=== PATIENT | female | born 1970 | race Caucasian/White ===

== ENCOUNTER → 2019-03-11 | Outpatient (CLI) | payer BC ==
[~2019-03-11] MED LIST: BUPR300T; CRYSELLE; DIPH25TA82; IBP800T PO
--- NOTE | 2019-03-11 15:28 | Diagnostic Imaging Report ---
PROCEDURE: US NONOB transvaginal. INDICATION: Right lower quadrant abdominal pain. TECHNIQUE: Multiple real time villalba scale sonographic images were obtained of the pelvis, transabdominally and transvaginally. CORRELATION STUDY: None. FINDINGS: There is nonvisualization of the uterus compatible with hysterectomy. Additionally, the left ovary is not visualized perhaps removed as well. What appears to be the right ovary is 1.0 x 1.0 x 0.8 cm, atrophic. There is a small hypoechoic area which could be reflective of a very small cyst or follicle at approximately 9 mm in size. No definitive abnormal pelvic mass lesion otherwise demonstrated. No significant pelvic fluid. IMPRESSION: 1. What may be the right ovary appears to be somewhat small and atrophic containing a probable small cyst or follicle. Definitive abnormal mass lesion not otherwise demonstrated. Nonvisualization of the uterus and left ovary, likely surgically removed. Dictated by: Dictated on workstation # [id number]
== END ==
LOC: RAD 12:32
PROVIDERS: ATTEND Nurse Practitioner Family
DX: R10.31 Right lower quadrant pain (principal); Z87.448 Personal history of other diseases of urinary system
CPT/HCPCS: 76830

== ENCOUNTER → 2019-03-28 | Outpatient (CLI) | payer BC ==
[~2019-03-28] MED LIST changes: +BARIUM SUSPENSION 105% (LIQUID POLIBAR PLUS) 240 ML/DOSE PO ONE; +BARIUM SUSPENSION 60% (LIQUID EZ PAQUE) 240 ML DOSE PO ONE
--- NOTE | 2019-03-28 12:30 | Diagnostic Imaging Report ---
INDICATION: Dysphagia with solid foods. TECHNIQUE: The patient ingested effervescent crystals as well as thin and thick barium and imaging over the esophagus was performed. 1 minute and 7 seconds of fluoroscopy was utilized. FINDINGS: The preliminary radiograph is unremarkable. The swallowing mechanism is unremarkable. The esophagus has a smooth contour. No mass or stricture is identified. No gastroesophageal reflux or hiatal hernia is demonstrated. IMPRESSION: Unremarkable esophagram. If symptoms persist, a modified barium swallow utilizing Speech Pathology may be useful for further evaluation. Dictated by: Dictated on workstation # [id number]
== END ==
LOC: RAD 11:20
PROVIDERS: ATTEND Nurse Practitioner Family
DX: Z12.31 Encounter for screening mammogram for malignant neoplasm of breast (principal); R05 Cough; R13.10 Dysphagia, unspecified
CPT/HCPCS: 74220

== ENCOUNTER → 2019-04-11 | Outpatient (CLI) | payer BC ==
[~2019-04-11] MED LIST changes: -BARIUM SUSPENSION 105% (LIQUID POLIBAR PLUS) 240 ML/DOSE PO ONE; -BARIUM SUSPENSION 60% (LIQUID EZ PAQUE) 240 ML DOSE PO ONE
--- NOTE | 2019-04-11 14:11 | Diagnostic Imaging Report ---
INDICATION: Left breast density. Patient presents for additional views. COMPARISON Screening study from 03/28/2019. TECHNIQUE: Unilateral left 2D and 3D diagnostic mammography was performed with CAD. Spot compression CC, ML, and conventional 90 degree lateral views were performed. FINDINGS: Additional views show a persistent nodular density in the central left breast which appears to be superiorly located on the ML views. This is approximately 7 cm from the nipple. This has the appearance of an intraparenchymal lymph node on the spot compression CC view. No suspicious calcifications are seen. IMPRESSION: Persistent left breast density. Further evaluation with ultrasound is recommended and will be performed today. ACR BI-RADS Category 0: Incomplete. (Needs additional imaging evaluation). Result letter will be mailed to the patient. Note: At least 10% of breast cancer is not imaged by mammography. Dictated by: Dictated on workstation # [id number]
--- NOTE | 2019-04-11 19:08 | Diagnostic Imaging Report ---
INDICATION: Left breast density. Correlation is made with diagnostic mammogram earlier the same day. FINDINGS: Sonographic interrogation of the upper left breast was performed. There is a benign-appearing hypoechoic nodule at the 12:30 location in the left breast approximately 3 cm from the nipple measuring 6 mm x 5 mm x 4 mm. This correlates in size and similar location to the mammographic density. This has benign features. No internal vascularity is seen. No posterior acoustic shadowing is present. IMPRESSION: Benign-appearing hypoechoic nodule at 12:30 location in the left breast, likely accounting for the mammographic density. Even so, follow-up left mammogram and left breast ultrasound in six months is recommended to ensure continued stability. ACR BI-RADS Category 3: Probably benign findings. Result letter will be mailed to the patient. Note: At least 10% of breast cancer is not imaged by mammography. Dictated by: Dictated on workstation # [id number]
== END ==
LOC: RAD 13:33
PROVIDERS: ATTEND Nurse Practitioner Family
DX: R92.2 Inconclusive mammogram (principal)
CPT/HCPCS: 76642

== ENCOUNTER 2019-08-09 14:00 | Outpatient (CLI) | payer BC ==
[~2019-08-09] VITALS: Ht 162.6 cm; Wt 101.4 kg
[2019-08-09] MEDS ORDERED: LEVO100T7 PO (14:11)
== END 2019-08-09 14:15 | disposition home or self-care (01) ==
LOC: PREOP 14:00
PROVIDERS: ATTEND Surgery
DX: Z01.818 Encounter for other preprocedural examination (principal)

== ENCOUNTER 2019-08-15 10:11 | Day surgery (SDC) | payer BC ==
[~2019-08-15] VITALS: Ht 163 cm; Wt 101.4 kg
[~2019-08-15 10:11] MED LIST changes: +LEVO100T7 PO
[2019-08-15] MEDS ORDERED: LACTATED RINGERS 1,000 ML IV STA (10:24)
[2019-08-15] MEDS ORDERED: LACTATED RINGERS 1,000 ML IV ONE (10:29)
[2019-08-15] MEDS ORDERED: HURRICAINE EXT TUBE (BENZOCAINE) XX PRN (10:30)
[2019-08-15 10:46] VITALS: BP 129/91
--- NOTE | 2019-08-15 11:30 | Progress Note-Pre Operative ---
Pre-Operative Progress Note H&P Reviewed The H&P was reviewed, patient examined and no changes noted. Time Seen by Provider: 11:05 Date H&P Reviewed: Aug 15, 2019 Time H&P Reviewed: 11:29 Pre-Operative Diagnosis: Dyspagia, Screening Colonoscopy FAN GRAVES DO Aug 15, 2019 11:30
[2019-08-15] MEDS ORDERED: MIDAZOLAM 2 MG/2 ML (VERSED) VIAL ONE (11:32)
[2019-08-15] MEDS ORDERED: PROPOFOL INJECTION 50 ML IV ONE (11:32)
[2019-08-15 12:15] VITALS: BP 142/78
[2019-08-15 12:45] VITALS: BP 119/64
--- NOTE | 2019-08-15 13:19 | Progress Note-Post Operative ---
Post-Operative Progess Note Surgeon (s)/Candle Pourer (s) Surgeon FAN GRAVES DO Candle Pourer: none Pre-Operative Diagnosis Dyspagia, Screening Colonoscopy Post-Operative Diagnosis Gastritis Esophagitis Hiatal Hernia Diverticula Internal hemorrhoids Procedure & Operative Findings Date of Procedure 08/15/19 Procedure Performed/Findings EGD with bx Colon Anesthesia Type IV sedation by PIPE CAULKER Estimated Blood Loss Estimated blood loss (mL): scant Specimens/Packing Specimens Removed antral bx body of stomach bx GE jxn bx FAN GRAVES DO Aug 15, 2019 13:19
--- NOTE | 2019-08-15 13:20 | Endoscopy Discharge Instruct ---
Endo Procedure/Findings Findings 1.: Gastritis 2.: Hiatal Hernia 3.: Diverticulosis 4.: Internal Hemorrhoids Discharge Instructions - Activity: You might feel a little sleepy until tomorrow. This is due to the medicine you received to relax you. Until tomorrow, you should: NOT drive a car, operate machinery or power tools. NOT drink any alcoholic beverages. NOT make any important decisions or sign importortant papers. Do not return to work until tomorrow, unless otherwise instructed. Resume previous activities tomorrow. Diet: Start by taking liquids. If you tolerate liquids, advance to solid food. 1.: Colonscopy in 10 years, EGD in 1 year Notify Physician - If you experience excessive bleeding, unusual abdominal pain, fever, or chest pain, contact your doctor immediately. FAN GRAVES DO Aug 15, 2019 13:20
--- NOTE | 2019-08-15 13:29 | Anesthesia-General Post-Op ---
MAC Patient Condition Mental Status/LOC: Same as Preop Cardiovascular: Satisfactory Nausea/Vomiting: Absent Respiratory: Satisfactory Pain: Controlled Complications: Absent Post Op Complications Complications None Follow Up Care/Instructions Patient Instructions None needed. Anesthesiology Discharge Order Discharge Order Patient is doing well, no complaints, stable vital signs, no apparent adverse anesthesia problems. AMENA PARKER DO Aug 15, 2019 13:28
[2019-08-15 13:35] VITALS: BP 119/64
--- NOTE | 2019-08-18 05:20 | OPERATIVE REPORT ---
DATE OF SERVICE: 08/15/2019 PREOPERATIVE DIAGNOSES: Dysphagia and screening colonoscopy. POSTOPERATIVE DIAGNOSES: 1. Gastritis. 2. Esophagitis. 3. Hiatal hernia. 4. Diverticula. 5. Internal hemorrhoids. PROCEDURES: 1. EGD with biopsy. 2. Colonoscopy. SURGEON: Robert Guzman DO. POST MANAGER: Sydney Serna MS3. SPECIMEN: Biopsy from the antrum, biopsy from body of stomach, biopsy from the GE junction. BLOOD LOSS: Scant. FLUIDS: Per anesthesia. POSTOPERATIVE CONDITION: Stable. INDICATION FOR PROCEDURE: The patient is a 49-year-old female who has been having some trouble swallowing, needed an EGD for workup. She never had a colonoscopy and needed screening colonoscopy. FINDINGS: The patient had some gastritis, esophagitis and hiatal hernia. In the colon, she had some diverticula and internal hemorrhoids. No other obvious pathology in the colon. PROCEDURE NOTE: After informed consent was obtained, the patient was brought to the endoscopy suite, placed in the bed in left lateral decubitus position. She was administered IV sedation by the VICE PROVOST who then monitored her vitals the entire time, heart rate, blood pressure, pulse ox. Started with the EGD, scope was inserted down the mouth through the esophagus into the stomach, pushed down into the stomach and noted some gastritis, took a picture of this, actually looked like there was a little bit of inflammation in the esophagus as well and took a picture of the esophagus on the way down in the antrum, pushed through, saw the pylorus and pushed through the pylorus into the duodenum. Duodenum looked good, took a picture. Pulled the scope back into the antrum and did a biopsy of the antrum, then retroflexed the scope, saw a small hiatal hernia and did a biopsy of body of stomach and then pulled the scope up into the esophagus and tried to do a biopsy of the GE junction. At this point, then suctioned the air out of the stomach and pulled the scope up the esophagus and out the mouth. Switched camera, switched gloves, went down below, started the colonoscopy, pushed the scope in all the way about 150 cm, able to get to the cecum. On the way in, noted some diverticula, took pictures of this in the cecum, took a picture of appendiceal orifice, noted the ileocecal valve and then slowly withdrew the scope insufflating to look circumferentially at the holland looking the cecum, up the ascending colon to the hepatic flexure, then down the transverse colon, the splenic flexure, then down into the descending colon and finally into the sigmoid and then into the rectum, retroflexed in the rectal vault, saw some minimal internal hemorrhoids, took a picture of this and then removed the scope. The patient tolerated the procedure, recovered in endoscopy suite. Job ID: [id number] DocumentID: [id number] Dictated Date: 08/17/2019 21:28:12 Transformer Inspector Date: 08/18/2019 05:20:11 Dictated By: ROBERT GUZMAN DO
== END 2019-08-15 13:35 | disposition home or self-care (01) ==
LOC: ENDO 10:11
PROVIDERS: ATTEND Surgery

== ENCOUNTER → 2019-09-26 | Outpatient (CLI) | payer BC ==
--- NOTE | 2019-09-26 14:18 | Diagnostic Imaging Report ---
INDICATION: Six-month followup left breast nodule. COMPARISON: Correlation is made with the prior left breast ultrasound from 04/11/2019. FINDINGS: The previously noted hypoechoic nodule at the 12:30 location of the left breast 3 cm from the nipple is again noted. This is unchanged in size measuring 5 mm x 4 mm x 6 mm. No new abnormality is seen. IMPRESSION: Stable benign-appearing hypoechoic nodule at the 12:30 location in the left breast 3 cm from the nipple. An additional 6 month followup left breast ultrasound is recommended to confirm stability. ACR BI-RADS Category 3: Probably benign findings. Dictated by: Dictated on workstation # [id number]
--- NOTE | 2019-09-26 14:23 | Diagnostic Imaging Report ---
INDICATION: Six-month followup left breast nodule. COMPARISON: 01/12/2019 and 09/28/2015. TECHNIQUE: Unilateral left 2D and 3D diagnostic mammography was performed with CAD. FINDINGS: Scattered fibroglandular densities are identified. The nodular density in the upper central left breast appears stable. No new mass is detected. No microcalcifications are seen. The left axilla is unremarkable. IMPRESSION: Stable left breast nodule. Even so, a left breast ultrasound is recommended to confirm stability. This will be performed today. ACR BI-RADS Category 0: Incomplete. (Needs additional imaging evaluation). Result letter will be mailed to the patient. Note: At least 10% of breast cancer is not imaged by mammography. Dictated by: Dictated on workstation # [id number]
== END ==
LOC: RAD 13:04
PROVIDERS: ATTEND Nurse Practitioner Family
DX: N63.21 Unspecified lump in the left breast, upper outer quadrant (principal)
CPT/HCPCS: 76642

== ENCOUNTER → 2020-03-22 | Outpatient (CLI) | payer BC | LOC: WOUNDCARE 13:19 | PROVIDERS: ATTEND Surgery | DX: L98.491 Non-pressure chronic ulcer of skin of other sites limited to breakdown of skin (principal); T23.231A Burn of second degree of multiple right fingers (nail), not including thumb, initial encounter | CPT/HCPCS: 16020 ==

== ENCOUNTER → 2020-03-29 | Outpatient (CLI) | payer BC | LOC: WOUNDCARE 09:27 | PROVIDERS: ATTEND Surgery | DX: T23.231A Burn of second degree of multiple right fingers (nail), not including thumb, initial encounter (principal); L98.491 Non-pressure chronic ulcer of skin of other sites limited to breakdown of skin | CPT/HCPCS: 99213 ==

== ENCOUNTER → 2020-04-05 | Outpatient (CLI) | payer BC ==
[~2020-04-05] MED LIST changes: +CEFD300C3 PO
== END ==
LOC: WOUNDCARE 08:18
PROVIDERS: ATTEND Surgery
DX: L98.491 Non-pressure chronic ulcer of skin of other sites limited to breakdown of skin (principal); T23.221A Burn of second degree of single right finger (nail) except thumb, initial encounter; I96 Gangrene, not elsewhere classified
CPT/HCPCS: 99212

== ENCOUNTER 2020-04-07 04:47 | Inpatient (IN) | payer BC ==
[~2020-04-07] VITALS: Ht 160 cm; Wt 108.8 kg
[2020-04-07] VITALS (14 sets, daily range): BP systolic 86–112; BP diastolic 46–62
[~2020-04-07 04:47] MED LIST changes: -CEFD300C3 PO
--- OUTSIDE RECORDS SUMMARY | 2020-04-07 04:54 | XMS REPORT | Continuity of Care Document ---
Author Organization Unknown Address Unknown Phone Unavailable Allergies Active Description Code Type Severity Reaction Onset Reported/Identified Relationship to Patient Clinical Status Yes erythromycin base [id number] Drug Allergy Moderate HIVES 09/24/2009 Yes latex [id number] Drug Allergy Moderate HIVES,ITCH 09/24/2009 Medications There is no data. Problems Date Dx Coded Attending Type Code Diagnosis Diagnosed By 03/30/2015 Ot V70.0 03/30/2015 Ot 793.89 03/30/2015 Ot V71.2 03/30/2015 Ot 793.89 03/30/2015 Ot 793.82 03/30/2015 Ot 241.0 03/30/2015 YRN ELISE, LUIS Lutz Ot 241. 0 04/04/2015 JASPER ELISE, RADHA A Ot 599.0 04/20/2015 JASPER ELISE, RADHA A Ot 599.0 09/28/2015 Ot V70.0 09/28/2015 Ot 793.89 09/28/2015 Ot V71.2 09/28/2015 Ot 793.89 09/28/2015 Ot 793.82 09/28/2015 Ot 241.0 09/28/2015 YRN ELISE, LUIS R Ot 241. 0 09/28/2015 JASPER ELISE, RADAH A Ot 599.0 10/17/2015 WINSTON ELISE, TANYA Victor Ot Z12.31 03/09/2019 JASPER ELISE, RADHA Matute Ot 599.0 URIN TRACT INFECTION NOS 03/09/2019 WINSTON ELISE, TANYA Victor Ot Z12.31 ENCNTR SCREEN MAMMOGRAM FOR MALIGNANT NE 03/14/2019 KEVIN SUTHERLAND CLINICAL ACADEMIC ALLERGIST Ot R10.31 RIGHT LOWER QUADRANT PAIN 03/14/2019 KEVIN SUTHERLAND Ot Z87.448 PERSONAL HISTORY OF OTHER DISEASES OF UR 03/14/2019 KEVIN SUTHERLAND CLINICAL ACADEMIC ALLERGIST Ot R10.31 RIGHT LOWER QUADRANT PAIN 03/14/2019 ENA, CRYSTAL M CLINICAL ACADEMIC ALLERGIST Ot Z87.448 PERSONAL HISTORY OF OTHER DISEASES OF UR 03/17/2019 KEVIN SUTHERLAND CLINICAL ACADEMIC ALLERGIST Ot R10.31 RIGHT LOWER QUADRANT PAIN 03/17/2019 KEVIN SUTHERLAND CLINICAL ACADEMIC ALLERGIST Ot Z87.448 PERSONAL HISTORY OF OTHER DISEASES OF UR 03/24/2019 KEVIN SUTHERLAND CLINICAL ACADEMIC ALLERGIST Ot R10.31 RIGHT LOWER QUADRANT PAIN 03/24/2019 KEVIN SUTHERLAND CLINICAL ACADEMIC ALLERGIST Ot Z87.448 PERSONAL HISTORY OF OTHER DISEASES OF UR 03/28/2019 KEVIN SUTHERLAND CLINICAL ACADEMIC ALLERGIST Ot R10.31 RIGHT LOWER QUADRANT PAIN 03/28/2019 KEVIN SUTHERLAND CLINICAL ACADEMIC ALLERGIST Ot Z87.448 PERSONAL HISTORY OF OTHER DISEASES OF UR 03/28/2019 KEVIN SUTHERLAND CLINICAL ACADEMIC ALLERGIST Ot R05 COUGH 03/28/2019 KEVIN SUTHERLAND CLINICAL ACADEMIC ALLERGIST Ot R13.10 DYSPHAGIA, UNSPECIFIED 03/28/2019 KEVIN SUTHERLAND CLINICAL ACADEMIC ALLERGIST Ot Z12.31 ENCNTR SCREEN MAMMOGRAM FOR MALIGNANT NE 04/12/2019 KEVIN SUTHERLAND CLINICAL ACADEMIC ALLERGIST Ot R92.2 INCONCLUSIVE MAMMOGRAM 04/14/2019 KEVIN SUTHERLAND CLINICAL ACADEMIC ALLERGIST Ot R05 COUGH 04/14/2019 KEVIN SUTHERLAND CLINICAL ACADEMIC ALLERGIST Ot R13.10 DYSPHAGIA, UNSPECIFIED 04/14/2019 KEVIN SUTHERLAND CLINICAL ACADEMIC ALLERGIST Ot Z12.31 ENCNTR SCREEN MAMMOGRAM FOR MALIGNANT NE 04/26/2019 KEVIN SUTHERLAND CLINICAL ACADEMIC ALLERGIST Ot R92.2 INCONCLUSIVE MAMMOGRAM 08/09/2019 FAN GRAVES DO Ot Z01.8 18 ENCOUNTER FOR OTHER PREPROCEDURAL EXAMIN 08/15/2019 FAN GRAVES DO Ot E03.9 HYPOTHYROIDISM, UNSPECIFIED 08/15/2019 FAN GRAVES DO B Ot E66.9 OBESITY, UNSPECIFIED 08/15/2019 FAN GRAVES DO B Ot K20.8 OTHER ESOPHAGITIS 08/15/2019 FAN GRAVES DO B Ot K29.5 0 UNSPECIFIED CHRONIC GASTRITIS WITHOUT BL 08/15/2019 FAN GRAVES DO Ot K44.9 DIAPHRAGMATIC HERNIA WITHOUT OBSTRUCTION 08/15/2019 FAN GRAVES DO B Ot K57.3 0 DVRTCLOS OF LG INT W/O PERFORATION OR AB 08/15/2019 FAN GRAVES DO Ot K64.8 OTHER HEMORRHOIDS 08/15/2019 FAN GRAVES DO Ot Z12.1 1 ENCOUNTER FOR SCREENING FOR MALIGNANT NE 08/15/2019 ELY CURTIS FAN B Ot Z68.3 8 BODY MASS INDEX (BMI) 38.0-38.9, ADULT 08/15/2019 ELY CURTIS FAN B Ot Z80.0 FAMILY HISTORY OF MALIGNANT NEOPLASM OF 08/15/2019 ELY CURTIS FAN B Ot Z88.1 ALLERGY STATUS TO OTHER ANTIBIOTIC AGENT 08/15/2019 ELY CURTIS FAN B Ot Z90.7 10 ACQUIRED ABSENCE OF BOTH CERVIX AND UTER 08/29/2019 ELY CURTIS FAN B Ot E03.9 HYPOTHYROIDISM, UNSPECIFIED 08/29/2019 ELY CURTIS FNA B Ot E66.9 OBESITY, UNSPECIFIED 08/29/2019 ELY CURTIS FAN B Ot K20.8 OTHER ESOPHAGITIS 08/29/2019 ELY CURTIS FAN B Ot K29.5 0 UNSPECIFIED CHRONIC GASTRITIS WITHOUT BL 08/29/2019 ELY CURTIS FAN B Ot K44.9 DIAPHRAGMATIC HERNIA WITHOUT OBSTRUCTION 08/29/2019 ELY CURTIS FAN B Ot K57.3 0 DVRTCLOS OF LG INT W/O PERFORATION OR AB 08/29/2019 ELY CURTIS FAN B Ot K64.8 OTHER HEMORRHOIDS 08/29/2019 ELY CURTIS FAN B Ot Z12.1 1 ENCOUNTER FOR SCREENING FOR MALIGNANT NE 08/29/2019 ELY CURTIS FAN B Ot Z68.3 8 BODY MASS INDEX (BMI) 38.0-38.9, ADULT 08/29/2019 ELY CURTIS FAN B Ot Z80.0 FAMILY HISTORY OF MALIGNANT NEOPLASM OF 08/29/2019 ELY CURTIS FAN B Ot Z88.1 ALLERGY STATUS TO OTHER ANTIBIOTIC AGENT 08/29/2019 ELY CURTIS, FAN B Ot Z90.7 10 ACQUIRED ABSENCE OF BOTH CERVIX AND UTER 09/26/2019 KEVIN USTHERLAND CLINICAL ACADEMIC ALLERGIST Ot R10.31 RIGHT LOWER QUADRANT PAIN 09/26/2019 KEVIN SUTHERLAND CLINICAL ACADEMIC ALLERGIST Ot Z87.448 PERSONAL HISTORY OF OTHER DISEASES OF UR 09/26/2019 KEVIN SUTHERLAND CLINICAL ACADEMIC ALLERGIST Ot R05 COUGH 09/26/2019 KEVIN SUTHERLAND CLINICAL ACADEMIC ALLERGIST Ot R13.10 DYSPHAGIA, UNSPECIFIED 09/26/2019 KEVIN SUTHERLAND CLINICAL ACADEMIC ALLERGIST Ot Z12.31 ENCNTR SCREEN MAMMOGRAM FOR MALIGNANT NE 09/26/2019 KEVIN SUTHERLAND Ot R92.2 INCONCLUSIVE MAMMOGRAM 09/27/2019 KEVIN SUTHERLAND Ot N63.21 UNSPECIFIED LUMP IN THE LEFT BREAST, UPP 03/23/2020 LEVON JUAREZ MD Ot L98.491 NON-PRS CHRONIC ULCER SKIN/ SITES LIMITE 03/23/2020 LEVON JUAREZ MD Ot T23.231A BURN 2ND DEG MUL RIGHT FINGERS (NAIL), N 03/23/2020 LEVON JUAREZ MD Ot L98.491 NON-PRS CHRONIC ULCER SKIN/ SITES LIMITE 03/23/2020 LEVON JUAREZ MD Ot T23.231A BURN 2ND DEG MUL RIGHT FINGERS (NAIL), N 03/28/2020 LEVON JUAREZ MD, Ot L98.491 NON-PRS CHRONIC ULCER SKIN/ SITES LIMITE 03/28/2020 LEVON JUAREZ MD Ot T23.231A BURN 2ND DEG MUL RIGHT FINGERS (NAIL), N 04/03/2020 LEVON JUAREZ MD, Ot L98.491 NON-PRS CHRONIC ULCER SKIN/ SITES LIMITE 04/03/2020 LEVON JUAREZ MD Ot T23.231A BURN 2ND DEG MUL RIGHT FINGERS (NAIL), N Procedures There is no data. Results There is no data. Encounters ACCT No. Visit Date/Time Discharge Status Pt. Type Provider Facility Loc./Unit Complaint [id number] 03/29/2020 09:27:00 23:59:59 CLS Outpatient LEVON JUAREZ MD [facility] WOUNDCARE [id number] 03/22/2020 13:19:00 23:59:59 CLS Outpatient LEVON JUAREZ MD [facility] WOUNDCARE [id number] 09/26/2019 13:04:00 23:59:59 CLS Outpatient KEVIN SUTHERLAND [facility] RAD ABNORMAL MAMMOG FRANCK [id number] 08/15/2019 10:11:00 13:35:00 DIS Outpatient FAN GRAVES DO [facility] ENDO SCREENING/DYSPHAGIA [id number] 08/09/2019 14:00:00 14:15:00 DIS Outpatient FAN GRAVES DO [facility] PREOP COLONOSCOPY/EGD [id number] 08/08/2019 10:00:00 23:59:59 CLS Preadmit FAN GRAVES DO V [facility] RAD DYSPHAGIA W/SOLID FOOD [id number] 04/11/2019 13:33:00 23:59:59 CLS Outpatient KEVIN SUTHERLAND CLINICAL ACADEMIC ALLERGIST [facility] RAD ABN MAMMO OF LE FT BREAST [id number] 03/28/2019 11:20:00 23:59:59 CLS Outpatient KEVIN SUTHERLAND CLINICAL ACADEMIC ALLERGIST [facility] RAD COUGH,DYSPHAGIA [id number] 03/11/2019 12:32:00 23:59:59 CLS Outpatient KEVIN SUTHERLAND CLINICAL ACADEMIC ALLERGIST [facility] RAD RLQ ABD PAIN [id number] 03/02/2019 08:49:00 23:59:59 CLS Preadmit KEVIN SUTHERLAND CLINICAL ACADEMIC ALLERGIST [facility] RAD SCREENING [id number] 09/28/2015 10:47:00 23:59:59 CLS Outpatient TANYA MONTERO MD [facility] RAD ROUTINE SCREENI NG [id number] 03/30/2015 07:17:00 015 23:59:59 CLS Outpatient RADHA HUTCHINSON MD [facility] RAD RECURRENT UTI [id number] 02/18/2013 10:03:00 013 23:59:59 CLS Outpatient YRN ELISE, LUIS Lutz [facility] RAD [id number] 04/05/2020 08:18:[address] Outpatient LEVON JUAREZ MD [facility] WOUNDCARE [id number] 03/30/2015 07:18:00 Document Registration [id number] 03/30/2015 07:18:00 Document Registration [id number] 08/25/2012 13:07:00 Document Registration [id number] 11/21/2011 07:53:00 Document Registration [id number] 11/20/2011 07:44:00 Document Registration
--- OUTSIDE RECORDS SUMMARY | 2020-04-07 04:54 | XMS REPORT ---
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 Unavailable Unavailable NO, LOCAL PHYSICIAN PCP Unavailable FAN GRAVES DO Unavailable Unavailable LARRY ELISE, LEVON Victor Unavailable Unavailable Unavailable Unavailable Unavailable Unavailable Allergies Normalized Allergy Reported Date of Reaction(s) Care Provider Facility Allergy Type classification allergen Allergy Onset DA ( Unclassified erythromycin 09-24-2009 - Urticaria ARELI L ENA [facility] Via sources.) base Zhanna Translations: Hospital - [ Allergy to [place] substance] (11020) Substance Latex Latex 09-24-2009 - HIVES,ITCH, CRYSTAL JONNIE MAKENZIE [facility] Via Allergy (22 Translations: HIVES,ITCH Zhanna sources.) [ Latex] Hospital - Translations: [place] [ Allergy to (34680) substance] Medications Medication Ingredient Drug Dose Dates Status Sig Sig Care Class(es) (Normalized) (Original) Provid er no buPROPion Aminoketone 08-09-20 Complete no Bupropion no information 19 d information Hcl name (2 Discontinued sources.) NOT APPLICABLE August 09, 2019 no diphenhydrA Histamine-1 08-09-20 Complete no Diphenhy dram no information MINE Receptor 19 d information ine Hcl n fidel (2 Antagonist Discontinued sources.) NOT APPLICABLE August 09, 2019 no Ethinyl Estrogen 01-15-20 Complete no Cryselle no information Estradiol / 10 d information Disconti nued name (2 Norgestrel NOT sources.) APPLICABLE January 14, 2010 no Ibuprofen Nonsteroida 01-16-20 Complete no Ibuprofen no information l 10 - d information Discontinued name (2 Anti-inflam 08-09-20 800 ORAL sources.) matory Drug 19 Three Times A Day 60 January 14, 2010 9:18pm August 09, 2019 levothyroxi levothyroxi l-Thyroxine no no Levothyr oxin no ne sodium ne informat information e Sodium name 0.1 mg oral ion Active 100 tablet (2 ORAL Daily sources.) Problems Problem Normalized Date Last Normalized Normalized Provider Edison powers Classification Problem(s) Recorded Problem Problem Sta tus Duration Residual Acquired Episodic Active FAN DELMAN , [facility] Via codes; absence of DO Zhanna unclassified both cervix Hospital - (3 sources.) and uterus [place] (10705) Allergic Allergy status Episodic Active FAN DELMAN , [facility] Via reactions (3 to other DO Zhanna sources.) antibiotic Hospital - agents status [place] (77562) Other Body mass Chronic Active FAN DELMAN , [facility] Via nutritional; index (BMI) DO [facility] endocrine; and 38.0-38.9, Hospital - metabolic adult [place] disorders (3 (51758) sources.) Zayas (5 Burn of second 03-23-2020 - Episodic Active LEVON Sriram [facility] Via sources.) degree of , MD Chao multiple right Hospital - fingers [place] (nail), not (47608) including thumb, initial encounter Other lower Cough Episodic Active CRYSTAL ENA [facility] Vi a respiratory [place] disease (3 Hospital - sources.) [place] (13242) Abdominal Diaphragmatic Episodic Active FAN DELMAN , [facility] Via hernia (3 hernia without DO [place] sources.) obstruction or Hospital - gangrene [place] (35137) Diverticulosis Diverticulosis Chronic Active FAN DELMAN , [facility] Via and of large DO [place] diverticulitis intestine Hospital - (3 sources.) without [place] perforation or (60951) abscess without bleeding Other Dysphagia Episodic Active LOCAL NO [place] Vi a gastrointestin Zhanna al disorders Hospital (1 source.) (75073) Other Dysphagia, Episodic Active CRYSTAL ENA [facility] Vi a gastrointestin unspecified Zhanna al disorders Hospital - (3 sources.) [place] (90299) Residual Family history Episodic Active FAN DELMAN , [facility] Via codes; of malignant DO Zhanna unclassified neoplasm of Hospital - (3 sources.) digestive [place] organs (75633) Thyroid Hypothyroidism Chronic Active FAN DELMAN , [facility] Via disorders (3 , unspecified DO Zhanna sources.) Hospital - [place] (89801) Other Inconclusive Episodic Active CRYSTAL ENA [facility] Via screening for mammogram Zhanna suspected Translations: Hospital - conditions [ ENCOUNTER [place] (not mental FOR SCREENING (55406) disorders or FOR MALIGNANT infectious NE, ENCNTR disease) (9 SCREEN sources.) MAMMOGRAM FOR MALIGNANT NE] Chronic ulcer Non-pressure 03-23-2020 - Chronic Active JOHANNA JUAREZ [facility] Via of skin (5 chronic ulcer , [facility] sources.) of skin of Hospital - other sites [place] limited to (27354) breakdown of skin Other Obesity, Chronic Active FAN DELMAN , [facility] Via nutritional; unspecified DO [facility] endocrine; and Hospital - metabolic [place] disorders (3 (69977) sources.) Esophageal Other Episodic Active FAN DELMAN , [facility] Via disorders (3 esophagitis DO [facility] sources.) Hospital - [place] (13957) Hemorrhoids (3 Other Episodic Active FAN DELMAN , [facility] Via sources.) hemorrhoids DO [facility] (27218) Unclassified Patient no information Active LOCAL NO [facility] Via (1 source.) encounter [facility] (58173) Genitourinary Personal Episodic Active CRYSTAL ENA [facility] Via symptoms and history of [facility] ill-defined other diseases Hospital - conditions (6 of urinary [place] sources.) system (03140) Abdominal pain Right lower Episodic Active CRYSTAL ENA [facility] Via (6 sources.) quadrant pain [facility] (85335) Gastritis and Unspecified Chronic Active FAN DELMAN , [facility] Via duodenitis (3 chronic DO [facility] sources.) gastritis Hospital - without [place] bleeding (84038) Nonmalignant Unspecified Episodic Active CRYSTAL ENA [facility] Via breast lump in the [facility] conditions (1 left breast, Hospital - source.) upper outer [place] quadrant (72614) Procedures The data below is from unstructured sourcesNo procedure information available.No procedure information available.No procedure information available. Immunizations The data below is from unstructured sourcesNo Immunization Information AvailableNo Immunization Information AvailableNo Immunization Information Available Results The data below is from unstructured sourcesNo known relevant diagnostic tests and/or laboratory data.No known relevant diagnostic tests and/or laboratory data.No known relevant diagnostic tests and/or la boratory data. Vital Signs The data below is from unstructured sources Vital Reading Result Col lection Date/Time Interventions No Information Plan of Treatment Normalized Care Care Detail Care Activity Date Care Provider F acility Activity Patient Education no information no information LOCAL NO As cension Via [facility] (63006) Goals Patient Goal Desired Goal no information no information Social History Normalized Code Original Code Date Value Tobacco smoking status Tobacco smoking status 08-09-2019 - Never smoked tobacco NHIS NHIS (finding) no information no information 08-09-2019 Denies Use no information no information 08-09-2019 No no information no information 08-09-2019 Never a Smoker Sex Assigned At Sex Assigned At no information F emale Functional Status The data below is from unstructured sourcesNo Functional Status information availableNo Functional Status information availableNo Functional Status information available Mental Status The data below is from unstructured sourcesNo Mental Status Information AvailableNo Mental Status Information AvailableNo Mental Status Information Available Encounters Encounter Normalized Encounter Encounter Diagnosis Care Provi wild Organization Date Type 08-15-2019 Admission to day no information (no phone) [facility] Via [facility] (no phone) 08-15-2019 04-05-2020 Patient encounter no information LEVON JUAREZ MD (no [facility] Via Zhanna procedure phone) [facility] (no phone) 03-29-2020 Patient encounter no information LEVON JUAREZ MD (no [facility] Via Zhanna procedure phone) [facility] (no phone) 03-22-2020 Patient encounter no information LEVON JUAREZ MD (no [facility] Via Zhanna procedure phone) [facility] (no phone) 09-26-2019 Patient encounter no information no name no or ganization name procedure 08-15-2019 Patient encounter no information no name no or ganization name - procedure 08-15-2019 08-15-2019 Patient encounter no information no name no or ganization name - procedure 08-15-2019 08-09-2019 Patient encounter no information (no phone) [facility] (no phone) 08-09-2019 08-08-2019 Patient encounter no information no name no or ganization name procedure 04-11-2019 Patient encounter no information no name no or ganization name procedure 04-11-2019 Patient encounter no information no name no or ganization name procedure 03-28-2019 Patient encounter no information no name no or ganization name procedure 03-11-2019 Patient encounter no information no name no or ganization name procedure 03-11-2019 Patient encounter no information no name no or ganization name procedure no information Encounter for other no name no organiz ation name preprocedural examination Medical Equipment The data below is from unstructured sourcesNo Medical Equipment Information availableNo Medical Equipment Information availableNo Medical Equipment Information available Payers Normalized Payer Value [facility] no information ([id number]) Advance Directives Advance Directive Response Recorded Date/Time Advance Directives No Oc tob2018 2:06pm Health Care Power of Auto Glass Installer No August 09, 2019 2:06pm Organ Donor Yes August 09, 2019 2:06pm Resuscitation Status Full Code August 09, 2019 2:06pm Advance Directive Response Recorded Date/Time Advance Directives No Oc tober 2018 10:43am Health Care Power of Auto Glass Installer No August 15, 2019 10:43am Organ Donor Yes August 15, 2019 10:43am Resuscitation Status Full Code August 15, 2019 10:43am Assessments No Assessments Information Available - Activity: You might feel a little sleepy until tomorrow. This is due to the medi cine you received to relax you. Until tomorrow, you should: NOT drive a car, operate machinery or power tools. NOT drink any alcoholic beverages. NOT make any important decisions or sign importortant papers. Do not return to work until tomorrow, unless otherwise instructed. Resume previo us activities tomorrow. Diet: Start by taking liquids. If you tolerate liquids, advance to solid food. Discharge Instructions Additional Instructions Patient Instructions Physician Instructions 1.: Gastritis 2.: Hiatal Hernia 3.: Diverticulosis 4.: Internal Hemorrhoids - Activity: You might feel a little sleepy until tomorrow. This is due to the medicine you received to relax you. Until tomorrow, you should: NOT drive a car, operate machinery or power tools. NOT drink any alcoholic beverages. NOT make any important decisions or sign importortant papers. Do not return to work until tomorrow, unless otherwise instructed. Resume previous activities tomorrow. Diet: Start by taking liquids. If you tolerate liquids, advance to solid food. 1.: Colonscopy in 10 years, EGD in 1 year - If you experience excessive bleeding, unusual abdominal pain, fever, or chest pain, contact your doctor immediately. Additional Source Comments This clinical document has been generated using [employer] software that has been certified by the Office of the National Coordinator for Health Information Technology (ONC 15.99.04.3023.Diam.[id number]) and the National Committee for Manager Floor (NCQA, as an eMeasure certified technology). FOR RECORDS PERTAINING TO PATIENTS WHO ARE OR HAVE BEEN ENROLLED IN A CHEMICAL D EPENDENCY/SUBSTANCE ABUSE PROGRAM, SOME INFORMATION MAY BE OMITTED. This clinica l summary was aggregated from multiple sources. Caution should be exercised in using it in the provision of clinical care. This summary normalizes information from multiple sources, and as a consequence, information in this document may ma terially change the coding, format and clinical context of patient data. In gertrudis tion, data may be omitted in some cases. CLINICAL DECISIONS SHOULD BE BASED ON T HE PRIMARY CLINICAL RECORDS. [facility] [employer] [facility]. provides no warranty or guara ntee of the accuracy or completeness of information in this document.The followi information is based on time limited clinical information
[2020-04-07] MEDS ORDERED: NITROGLYCERIN 0.4 MG SL TABS BTL 25'S SL PRN (05:00)
[2020-04-07] MEDS ORDERED: ASPIRIN 81 MG CHEW (CHILDREN'S ASA) PO ONE (05:00)
[2020-04-07 05:08] LABS: BASOPHILS % (AUTO) 0 % (0-10); EOSINOPHILS # (AUTO) 0.1 10^3/uL (0.0-0.3); EOSINOPHILS % (AUTO) 1 % (0-10); HEMATOCRIT 42 % (35-52); HEMOGLOBIN 13.5 G/DL (11.5-16.0); LYMPHOCYTES # (AUTO) 0.9 X 10^3 (1.0-4.0); LYMPHOCYTES % (AUTO) 8 % (12-44); MEAN CORPUSCULAR HEMOGLOBIN 27 PG (25-34); MEAN CORPUSCULAR HGB CONC 32 G/DL (32-36); MEAN CORPUSCULAR VOLUME 82 FL (80-99); MEAN PLATELET VOLUME 9.6 FL (7.4-10.4); MONOCYTES # (AUTO) 0.5 X 10^3 (0.0-1.0); MONOCYTES % (AUTO) 4 % (0-12); NEUTROPHILS # (AUTO) 9.6 X 10^3 (1.8-7.8); NEUTROPHILS % (AUTO) 87 % (42-75); PLATELET COUNT 216 10^3/uL (130-400); WHITE BLOOD COUNT 11.1 10^3/uL (4.3-11.0)
--- NOTE | 2020-04-07 05:09 | ED Chest Pain ---
General Chief Complaint: Chest Pain Stated Complaint: CP & BACK PAIN Source: patient (ABBYGOLDEN Trang CURTIS) History of Present Illness Date Seen by Provider: Apr 07, 2020 Time Seen by Provider: 04:53 Initial Comments PT ARRIVES VIA POV FROM HOME C/O CHEST PAIN THAT WOKE HER FROM SLEEP AT 0330 PAIN RADIATES INTO BACK PAIN IN BACK IS SHARP, PAIN IN CHEST IS MUCH HEAVINESS RATES PAIN 7/10 NOTHING WORSENS OR IMPROVES PAIN + SHORTNESS OF BREATH NO SWEATS MILD NAUSEA, NO VOMITING NO SWELLING IN LEGS/ FEET OR PAIN IN CALVES NO PALPITATIONS NO DIZZINESS OR SYNCOPE HAS HAD NASAL CONGESTION AND DRAINAGE, NO SIGNIFICANT COUGH--ONLY DUE TO DRAINAGE STATES SHE HAS ALLERGIES AND TAKES MUCINEX FOR IT NO FEVER/SWEATS/ CHILLS NO SORE THROAT NO CHANGE IN SMELL OR TASTE NO KNOWN SICK CONTACTS OR EXPOSURE TO COVID-19 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 VALLEJO/ EMAIL MANAGER [facility] [place] (GOLDEN MORA DO) Allergies and Home Medications Allergies Coded Allergies: erythromycin base (Verified Allergy, Intermediate, HIVES, 09/24/09) latex (Unverified Allergy, Intermediate, HIVES,ITCH, 09/24/09) Home Medications Levothyroxine Sodium 100 Mcg Tablet, 100 MCG PO DAILY, (Reported) Patient Home Medication List Home Medication List Reviewed: Yes (JULI YOUSSEF MD) Review of Systems Review of Systems Constitutional: no symptoms reported; No chills, No diaphoresis, No dizziness, No fever EENTM: No Symptoms Reported Respiratory: See HPI, Shortness of Air Cardiovascular: No Symptoms Reported, Chest Pain; Denies Edema, Denies Lightheadedness, Denies Palpitations, Denies Syncope Gastrointestinal: No Symptoms Reported; Denies Abdominal Pain, Denies Nausea, Denies Vomiting Genitourinary: No Symptoms Reported Musculoskeletal: see HPI, back pain Skin: other (CURRENTLY GOING TO WOUND CLINIC FOR A CHEMICAL BURN TO RIGHT 4TH FINGER) Psychiatric/Neurological: No Symptoms Reported, Headache Endocrine: No Symptoms Reported Hematologic/Lymphatic: No Symptoms Reported (GOLDEN MORA DO) Past Bamrwxm-Bymmhm-Vytsri Hx Past Med/Social Hx: Reviewed and Corrections made (GOLDEN MORA DO) Patient Social History Alcohol Use: Denies Use Recreational Drug Use: No Smoking Status: Never a Smoker Recent Foreign Travel: No Contact w/Someone Who Travel: No Recent Hopitalizations: No (ABBYGOLDEN Trang CURTIS) Seasonal Allergies Seasonal Allergies: Yes (ABBYGOLDEN Trang CURTIS) Past Medical History Surgeries: Yes (BUNIONECTOMY BILATERALLY X 2; X 4; HYST/USO) Section, Hysterectomy, Oophorectomy, Orthopedic Respiratory: No Cardiac: No Neurological: No Reproductive Disorders: Yes (MENORRHAGIA) 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 oz. kg; 38.16 BMI Method: General Appearance: No Apparent Distress, WD/WN, Other (OCCSIONAL LOOSE UPPER AIRWAY COUGH) HEENT: Other (NASAL CONGESTION) Neck: Full Range of Motion, Normal Inspection, Non Tender, Supple; No Carotid Bruit, No JVD Respiratory: Chest Non Tender, Normal Breath Sounds, No Accessory Muscle Use, No Respiratory Distress Cardiovascular: No Edema, No JVD, No Murmur, Normal Peripheral Pulses, Tachycardia Gastrointestinal: Normal Bowel Sounds, No Organomegaly, No Pulsatile Mass, Non Tender, Soft Extremity: Normal Capillary Refill, Normal Inspection, Normal Range of Motion, Non Tender, No Calf Tenderness, No Pedal Edema Neurologic/Psychiatric: Alert, Oriented x3, No Motor/Sensory Deficits, Normal Mood/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, 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 Norm as Tested Skin: Normal Color, Warm/Dry (ABBYGOLDEN Trang CURTIS) Progress/Results/Core Measures Results/Orders Lab Results Laboratory Tests Test 04/07/20 05:00 04/07/20 06:00 Range/Units White Blood Count 11.1 H 4.3-11.0 10^3/uL Red Blood Count 5.10 4.35-5.85 10^6/uL Hemoglobin 13.5 11.5-16.0 G/DL Hematocrit 42 35-52 % Mean Corpuscular Volume 82 80-99 FL Mean Corpuscular Hemoglobin 27 25-34 PG Mean Corpuscular Hemoglobin Concent 32 32-36 G/DL Red Cell Distribution Width 14.0 10.0-14.5 % Platelet Count 216 130-400 10^3/uL Mean Platelet Volume 9.6 7.4-10.4 FL Neutrophils (%) (Auto) 87 H 42-75 % Lymphocytes (%) (Auto) 8 L 12-44 % Monocytes (%) (Auto) 4 0-12 % Eosinophils (%) (Auto) 1 0-10 % Basophils (%) (Auto) 0 0-10 % Neutrophils # (Auto) 9.6 H 1.8-7.8 X 10^3 Lymphocytes # (Auto) 0.9 L 1.0-4.0 X 10^3 Monocytes # (Auto) 0.5 0.0-1.0 X 10^3 Eosinophils # (Auto) 0.1 0.0-0.3 10^3/uL Basophils # (Auto) 0.0 0.0-0.1 10^3/uL Erythrocyte Sedimentation Rate 1 0-30 MM/HR Prothrombin Time 12.4 12.2-14.7 SEC INR Comment 0.9 0.8-1.4 Activated Partial Thromboplast Time 31 24-35 SEC D-Dimer < 0.27 0.00-0.49 UG/ML Sodium Level 137 135-145 MMOL/L Potassium Level 3.9 3.6-5.0 MMOL/L Chloride Level 104 98-107 MMOL/L Carbon Dioxide Level 24 21-32 MMOL/L Anion Gap 9 5-14 MMOL/L Blood Urea Nitrogen 12 7-18 MG/DL Creatinine 0.98 0.60-1.30 MG/DL Estimat Glomerular Filtration Rate 60 BUN/Creatinine Ratio 12 Glucose Level 120 H 70-105 MG/DL Calcium Level 9.0 8.5-10.1 MG/DL Corrected Calcium 8.8 8.5-10.1 MG/DL Magnesium Level 1.9 1.6-2.4 MG/DL Total Bilirubin 0.7 0.1-1.0 MG/DL Aspartate Amino Transf (AST/SGOT) 17 5-34 U/L Alanine Aminotransferase (ALT/SGPT) 13 0-55 U/L Alkaline Phosphatase 76 40-136 U/L Lactate Dehydrogenase 172 125-220 U/L Total Creatine Kinase 75 29-168 U/L Creatine Kinase MB 0.9 <6.6 NG/ML Myoglobin 35.3 10.0-92.0 NG/ML Troponin I < 0.028 <0.028 NG/ML C-Reactive Protein High Sensitivity 2.22 H 0.00-0.50 MG/DL B-Type Natriuretic Peptide 13.0 <100.0 PG/ML Total Protein 7.2 6.4-8.2 GM/DL Albumin 4.2 3.2-4.5 GM/DL Amylase Level 63 25-125 U/L Lipase 19 8-78 U/L Procalcitonin 0.01 <0.10 NG/ML (JULI YOUSSEF MD) My Orders Orders - JULI YOUSSEF MD Lactic Acid Analyzer (04/07/20 06:49) Blood Culture (04/07/20 06:49) Azithromycin Injection (Zithromax Inject (04/07/20 06:49) Ceftriaxone For Iv Use (Rocephin For I (04/07/20 06:49) Troponin I (04/07/20 06:49) (JULI YOUSSEF MD) Medications Given in ED Current Medications Medications Dose Ordered Sig/June Route Start Time Stop Time Status Last Admin Dose Admin Aspirin 324 mg ONCE ONCE PO 04/07/20 05:00 04/07/20 05:02 DC 04/07/20 05:04 324 MG Iohexol 100 ml ONCE ONCE IV 04/07/20 05:45 04/07/20 06:52 DC 04/07/20 06:33 79 ML Nitroglycerin 0.4 mg UD PRN SL 04/07/20 05:00 04/07/20 05:07 0.4 MG Ondansetron HCl 8 mg ONCE ONCE IVP 04/07/20 05:30 04/07/20 05:31 DC 04/07/20 05:31 8 MG Sodium Chloride 100 ml ONCE ONCE IV 04/07/20 05:45 04/07/20 06:52 DC 04/07/20 06:33 100 ML (JULI YOUSSEF MD) Vital Signs/I&O 04/07/20 04/07/20 04/07/20 04:52 04:52 05:25 Temp 37.1 Pulse 108 Resp 20 B/P (MAP) 141/77 (98) O2 Delivery Room Air Room Air Nasal Cannula O2 Flow Rate 2.00 (JULI YOUSSEF MD) Progress Progress Note : Progress Note GAVE 4 BABY ASPIRIN AND NTG X 1 WITH SLIGHT IMPROVEMENT IN CHEST PAIN, BUT DROP IN BP TO 101 SYSTOLIC--GIVEN FLUID BOLUS GIVEN MORPHINE--BACK PAIN IS GONE, STILL WITH HEAVINESS IN CHEST, BUT IS IMPROVING GIVEN ZOFRAN FOR NAUSEA--RESOLVED COVID -19 TESTING DONE 0600--CARE TURNED OVER TO DR. YOUSSEF, CT CHEST PENDING (GOLDEN MORA DO) Progress Note : Progress Note 0600: Assumed care of patient pending CT scan. COVID 19 testing to be done. Monitor patient. 0700: CT complete and does show left lower lobe pneumonia. Also note cholelithiasis. We will initiate blood cultures and lactic acid and then start Rocephin and Zithromax and admitted patient to the hospital for further evaluation including cardiology evaluation for the chest pain. While patient does have a gallstone this does not seem to be inflamed and I do not think cholecystitis is a concern at this point. Discussed findings and concerns with the patient who agrees with the plan. 0719: I spoke with Dr. Humphrey who accepts patient for admission, inpatient status to cardiac step down. we'll continue the consultants Dr. Guzman and Dr. Medina who will see the patient once cleared from COVID testing. All agree with plan. Patient agrees with plan. (JULI OYUSSEF MD) Initial ECG Impression Date: Apr 07, 2020 Initial ECG Impression Time: 04:54 Initial ECG Rate: 114 Initial ECG Rhythm: S.Tach (GOLDEN MORA DO) Diagnostic Imaging Comments CXR---NO ACUTE PROCESS, PENDING RADIOLOGIST REVIEW Reviewed: Reviewed by Me (GOLDEN MORA DO) Diagonstic Imaging: CT Plain Films/CT/US/NM/MRI: chest Comments [facility] [place], [place] NAME: TAMELA BLUNT [facility] REC#: [id number] PT STATUS: REG ER : 1970 PHYSICIAN: GOLDEN MORA DO ADMIT DATE: 04/07/20/ER Draft Date of Exam:04/07/20 CT ANGIO CHEST W PROCEDURE: CT angiography of the chest with contrast. TECHNIQUE: Multiple contiguous axial images were obtained through the chest after uneventful bolus administration of intravenous contrast. 3D reconstructed CTA MIP acquisitions were also performed. Auto Exposure Controls were utilized during the CT exam to meet ALARA standards for radiation dose reduction. INDICATION: Chest pain and shortness of air. No prior studies are available for comparison. Evaluation of the pulmonary arterial system is without evidence of thromboembolism. No filling defects are seen within central, lobar or segmental branches. Thoracic aorta is normal caliber. No dissection is identified. No pericardial or pleural fluid is identified. There is some mild infiltrate in the left lower lobe adjacent to the heart. Right lung is clear. Upper abdomen demonstrates a stone within the gallbladder. IMPRESSION: 1. No evidence of pulmonary embolism or thoracic aortic dissection. 2. Left basilar infiltrate. 3. Cholelithiasis. Dictated on workstation # [id number] Dict: 04/07/20 0638 Trans: 04/07/20 0643 [facility] [id number] Interpreted by: SURI DECKER MD Electronically signed by: Reviewed: Reviewed by Me (JULI YOUSSEF MD) Departure Communication (Admissions) Time/Spoke to Admitting Phy: 07:12 Time/Spoke to Consulting Phy: 07:15 (JULI YOUSSEF MD) Impression Primary Impression: Left lower lobe pneumonia Qualified Codes: J18.1 - Lobar pneumonia, unspecified organism Additional Impressions: Cholelithiasis Qualified Codes: K80.20 - Calculus of gallbladder without cholecystitis without obstruction Chest pain Qualified Codes: R07.9 - Chest pain, unspecified COVID-19 evaluation Disposition: ADMITTED INPATIENT Condition: Stable Admissions Decision to Admit Reason: Admit from ER (General) Decision to Admit/Date: Apr 07, 2020 Time/Decision to Admit Time: 07:00 (JULI YOUSSEF MD) Departure-Patient Inst. Referrals: NO,LOCAL PHYSICIAN (PCP) Primary Care Physician KEVIN SUTHERLAND (Family) Primary Care Physician GOLDEN MORA DO Apr 07, 2020 05:08 JULI YOUSSEF MD Apr 07, 2020 07:14
[2020-04-07] MEDS ORDERED: morphine INJ 10 MG/ML 1ML (SYR OR VIAL) IVP STA ×2 (05:13→05:27)
[2020-04-07 05:20] LABS: ALBUMIN 4.2 GM/DL (3.2-4.5)
[2020-04-07 05:21] LABS: POTASSIUM 3.9 MMOL/L (3.6-5.0)
[2020-04-07] MEDS ORDERED: NS IV 1000 ML 1,000 ML IV SCH (05:21)
[2020-04-07 05:23] LABS: TOTAL PROTEIN 7.2 GM/DL (6.4-8.2)
[2020-04-07 05:25] LABS: BILIRUBIN,TOTAL 0.7 MG/DL (0.1-1.0); INR 0.9 (0.8-1.4); PARTIAL THROMBOPLASTIN TIME 31 SEC (24-35); PROTHROMBIN TIME PATIENT 12.4 SEC (12.2-14.7)
[2020-04-07 05:26] LABS: CREATININE SERUM 0.98 MG/DL (0.60-1.30)
[2020-04-07 05:29] LABS: MAGNESIUM 1.9 MG/DL (1.6-2.4)
[2020-04-07] MEDS ORDERED: ONDANSETRON 4 MG/2 ML (SDV) Z0FRAN IVP ONE (05:30)
[2020-04-07 05:38] LABS: CREATINE KINASE MB 0.9 NG/ML (<6.6)
[2020-04-07] MEDS ORDERED: IOHEXOL 350 MG/ML 100 ML (OMNIPAQUE 350) VIAL IV ONE (05:45)
[2020-04-07] MEDS ORDERED: HOLD METFORMIN - RECEIVED CONTRAST 20 ML VIAL IV SCH (05:45)
[2020-04-07] MEDS ORDERED: NS 100 ML (IVPB) BAG IV ONE (05:45)
--- NOTE | 2020-04-07 06:00 | NUR ---
COVID-19 SWAB COLLECTED AND TAKEN TO LAB WITH [facility]
[2020-04-07 06:09] LABS: FIBRIN DEGRADATION PRODUCTS < 0.27 UG/ML (0.00-0.49)
--- NOTE | 2020-04-07 06:43 | Diagnostic Imaging Report ---
PROCEDURE: CT angiography of the chest with contrast. TECHNIQUE: Multiple contiguous axial images were obtained through the chest after uneventful bolus administration of intravenous contrast. 3D reconstructed CTA MIP acquisitions were also performed. Auto Exposure Controls were utilized during the CT exam to meet ALARA standards for radiation dose reduction. INDICATION: Chest pain and shortness of air. No prior studies are available for comparison. Evaluation of the pulmonary arterial system is without evidence of thromboembolism. No filling defects are seen within central, lobar or segmental branches. Thoracic aorta is normal caliber. No dissection is identified. No pericardial or pleural fluid is identified. There is some mild infiltrate in the left lower lobe adjacent to the heart. Right lung is clear. Upper abdomen demonstrates a stone within the gallbladder. IMPRESSION: 1. No evidence of pulmonary embolism or thoracic aortic dissection. 2. Left basilar infiltrate. 3. Cholelithiasis. Dictated by: Dictated on workstation # [id number]
[2020-04-07] MEDS ORDERED: cefTRIAXone FOR IV USE 1,000 MG in WATER (STERILE) FOR INJECTION 10 ML IV STA (06:49)
[2020-04-07] MEDS ORDERED: AZITHROMYCIN INJECTION 500 MG in NS (IVPB) 250 ML IV STA (06:49)
--- OUTSIDE RECORDS SUMMARY | 2020-04-07 07:32 | XMS REPORT ---
Author Author [employer] [facility] [employer] [facility] [employer] Address [address] [address] Care Team Providers Care Surgical Scheduler Name Role Phone ENA KEVIN George DIRECTOR EXTERNAL COMMUNICATIONS Unavailable Unavailable NO, LOCAL PHYSICIAN PCP Unavailable FAN GRAVES DO Unavailable Unavailable LARRY ELISE, LEVON Victor Unavailable Unavailable Unavailable Unavailable Unavailable Unavailable Unavailable Unavailable Allergies Normalized Allergy Reported Date of Reaction(s) Care Provider Facility Allergy Type classification allergen Allergy Onset DA ( Unclassified erythromycin 09-24-2009 - Urticaria ARELI L ENA [facility] Via sources.) base [place] Translations: Hospital - [ Allergy to [place] substance] (02142) Substance Latex Latex 09-24-2009 - HIVES,ITCH, CRYSTAL JONNIE MAKENZIE [facility] Via Allergy (22 Translations: HIVES,ITCH [place] sources.) [ Latex] Hospital - Translations: [place] [ Allergy to (11987) substance] Medications Medication Ingredient Drug Dose Dates [...] cervix Hospital - (3 sources.) and uterus [place] (77685) Allergic Allergy status Episodic Active FAN DELMAN , [facility] Via reactions (3 to other DO [place] sources.) antibiotic Hospital - agents status [place] (80009) Other Body mass Chronic Active FAN DELMAN , [facility] Via nutritional; index (BMI) DO [facility] endocrine; and 38.0-38.9, Hospital - metabolic adult [place] disorders (3 (26968) sources.) Zayas (5 Burn of second 03-23-2020 - Episodic Active LEVON Sriram ROCA [facility] Via sources.) degree of , MD Chao multiple right Hospital - fingers [place] (nail), not (53843) including thumb, initial encounter Other lower Cough Episodic Active CRYSTAL ENA [facility] Vi a respiratory [place] disease (3 Hospital - sources.) [place] (18622) Abdominal Diaphragmatic Episodic Active FAN DELMAN , [facility] Via hernia (3 hernia without DO [place] sources.) obstruction or Hospital - gangrene [place] (68565) Diverticulosis Diverticulosis Chronic Active FAN DELMAN , [facility] Via and of large DO [place] diverticulitis intestine Hospital - (3 sources.) without [place] perforation or (19183) abscess without bleeding Other Dysphagia Episodic Active LOCAL NO [place] Vi a gastrointestin [place] al disorders Hospital (1 source.) (63509) Other Dysphagia, Episodic Active CRYSTAL ENA [facility] Vi a gastrointestin unspecified [place] al disorders Hospital - (3 sources.) [place] (45105) Residual Family history Episodic Active FAN DELMAN , [facility] Via codes; of malignant DO [place] unclassified neoplasm of Hospital - (3 sources.) digestive [place] organs (63403) Thyroid Hypothyroidism Chronic Active FAN DELMAN , [facility] Via disorders (3 , unspecified DO [place] sources.) Hospital - [place] (59736) Other Inconclusive Episodic Active CRYSTAL ENA [facility] Via screening for mammogram [place] suspected Translations: Hospital - conditions [ ENCOUNTER [place] (not mental FOR SCREENING (37090) disorders or FOR MALIGNANT infectious NE, ENCNTR disease) (9 SCREEN sources.) MAMMOGRAM FOR MALIGNANT NE] Chronic ulcer Non-pressure 03-23-2020 - Chronic Active JOHANNA JUAREZ [facility] Via of skin (5 chronic ulcer , [facility] sources.) of skin of Hospital - other sites [place] limited to (37880) breakdown of skin Other Obesity, Chronic Active FAN DELMAN , [facility] Via nutritional; unspecified DO [facility] endocrine; and Hospital - metabolic [place] disorders (3 (89621) sources.) Esophageal Other Episodic Active FAN DELMAN , [facility] Via disorders (3 esophagitis DO [facility] sources.) Hospital - [place] (88042) Hemorrhoids (3 Other Episodic Active FAN DELMAN , [facility] Via sources.) hemorrhoids DO [facility] (82708) Unclassified Patient no information Active LOCAL NO [facility] Via (1 source.) encounter [facility] (24393) Genitourinary Personal Episodic Active CRYSTAL ENA [facility] Via symptoms and history of [facility] ill-defined other diseases Hospital - conditions (6 of urinary [place] sources.) system (90698) Abdominal pain Right lower Episodic Active CRYSTAL ENA [facility] Via (6 sources.) quadrant pain [facility] (75154) Gastritis and Unspecified Chronic Active FAN DELMAN , [facility] Via duodenitis (3 chronic DO [facility] sources.) gastritis Hospital - without [place] bleeding (67337) Nonmalignant Unspecified Episodic Active CRYSTAL ENA [facility] Via breast lump in the [facility] conditions (1 left breast, Hospital - source.) upper outer [place] quadrant (29167) Procedures The data below is from unstructured sourcesNo procedure information available.No procedure information available.No procedure information available. Immunizations The data below is from unstructured sourcesNo Immunization Information AvailableNo Immunization Information AvailableNo Immunization Information Available Results Test Name Value Interpretation Reference Range Date Time Fa cility (Normalized) (Normalized) (Medline Reference) not yet categorized on 2020-04-07 PROCALCITONIN 0.01 (NEG) 04-07-2020 PENDING LOCA TION (PCT) 01:00-0400 [facility] (88924) laboratory on 2020-04-07 Albumin 4.2 g/dL (NEG) 3.4 - 5.4 g/dL 04-07-2020 PENDING LOCATION [Mass/Vol] 01:00-0400 [facility] (95806) ALP [Catalytic 76 U/L (NEG) 44 - 147 U/L 04-07-2020 PEND ING LOCATION activity/Vol] 01:00-399 [facility] () ALT [Catalytic 13 U/L (NEG) 4 - 40 U/L 04-07-2020 PENDIN G LOCATION activity/Vol] 01:00 [facility] () Amylase 63 U/L (NEG) 40 - 140 U/L 04-07-2020 PENDING L OCATION [Catalytic 01:-399 [facility] () activity/Vol] Anion gap 9 mmol/L (NEG) 3 - 11 mmol/L 04-07-2020 PENDING LOCATION [Moles/Vol] 01:00-399 [facility] () aPTT Coag (PPP) 31 s (NEG) 25 - 35 s 04-07-2020 PENDIN G LOCATION [Time] 01: [facility] () AST [Catalytic 17 U/L (NEG) 10 - 34 U/L 04-07-2020 PENDI NG LOCATION activity/Vol] 01:00 [facility] () Basophils (Bld) 0.0 10*3/uL (NEG) 0 - 0.3 10*3/uL 04-07-2020 PENDING LOCATION [#/Vol] 01:00-399 [facility] () Basophils/100 0 % (NEG) 0.5 - 1 % 04-07-2020 PENDING LOCATION WBC (Bld) 01:00-399 [facility] () Bilirubin 0.7 mg/dL (NEG) 0.1 - 1.2 mg/dL 04-07-2020 PENDIN G LOCATION [Mass/Vol] 01:00-0400 [facility] () Calcium 9.0 mg/dL (NEG) 8.5 - 10.2 mg/dL 04-07-2020 PENDI NG LOCATION [Mass/Vol] 01:00-0400 [facility] () Calcium 8.8 mg/dL (NEG) 8.5 - 10.2 mg/dL 04-07-2020 PENDI NG LOCATION [Mass/Vol] 01:00 [facility] () Chloride 104 mmol/L (NEG) 95 - 106 mmol/L 04-07-2020 PENDI NG LOCATION [Moles/Vol] 01:00-0400 [facility] (47804) CK [Catalytic 75 U/L (NEG) 04-07-2020 PENDING LOCA TION activity/Vol] 01:00-0400 [facility] (21536) CK.MB [Catalytic 0.9 (no code) 04-07-2020 PENDING L OCATION activity/Vol] 01:00-0400 [facility] (51269) CO2 [Moles/Vol] 24 mmol/L (NEG) 23 - 29 mmol/L 04-07-2020 P ENDING LOCATION 01:00-0400 [facility] (93708) Creatinine 0.98 mg/dL (NEG) 04-07-2020 PENDING LOCATI ON [Mass/Vol] 01:00-0400 [facility] (34838) Creatinine and 60 (no code) 04-07-2020 PENDING LOC ATION Glomerular 01:-0400 [facility] (11162) filtration rate.predicted panel - Serum, Plasma or Blood CRP [Mass/Vol] 2.22 (H) 04-07-2020 PENDING LOC ATION 01:00-0400 [facility] (30848) Eosinophils 0.1 10*3/uL (NEG) 0.05 - 0.5 04-07-2020 PENDING LOCATION (Bld) [#/Vol] 10*3/uL 01:00-0400 [facility] (16916) Eosinophils/100 1 % (NEG) 1 - 4 % 04-07-2020 PENDIN G LOCATION WBC (Bld) 01:00-0400 [facility] (64285) Erythrocyte 14.0 % (NEG) 11.6 - 14.6 % 04-07-2020 PENDIN G LOCATION distribution 01:00-0400 [facility] (89826) width (RBC) [Ratio] ESR (Bld) 1 (NEG) 04-07-2020 PENDING LOCATI ON [Velocity] 01:00-0400 [facility] (39649) Fibrin D-dimer < (NEG) 04-07-2020 PENDING LOC ATION FEU (PPP) 01:00-0400 [facility] (77300) [Mass/Vol] Glucose 120 mg/dL (H) 60 - 125 mg/dL 04-07-2020 PENDING LOCATION [Mass/Vol] 01:00-0400 [facility] (95051) Hematocrit (Bld) 42 % (NEG) 36.1 - 50.3 % 04-07-2020 P ENDING LOCATION [Volume 01:-399 [facility] () fraction] Hemoglobin (Bld) 13.5 g/dL (NEG) 12.1 - 17.2 g/dL 04-07-2020 PENDING LOCATION [Mass/Vol] 01: [facility] () INR Coag 0.9 (NEG) 04-07-2020 PENDING LOCATI ON (Platelet poor 01: [facility] () plasma or blood) [Relative time] LDH [Catalytic 172 U/L (NEG) 105 - 333 U/L 04-07-2020 PEN DING LOCATION activity/Vol] 01: [facility] () Lipase 19 U/L (NEG) 10 - 73 U/L 04-07-2020 PENDING LO CATION [Catalytic 01: [facility] () activity/Vol] Lymphocytes 0.9 10*3/uL (L) 0.9 - 2.9 04-07-2020 PENDING LOCATION (Bld) [#/Vol] 10*3/uL 01: [facility] (83889) Lymphocytes/100 8 % (L) 20 - 40 % 04-07-2020 PENDIN G LOCATION WBC (Bld) 01:00 [facility] (22983) Magnesium 1.9 mg/dL (NEG) 1.7 - 2.2 mg/dL 04-07-2020 PENDIN G LOCATION [Mass/Vol] 01: [facility] (00589) MCH (RBC) 27 pg (NEG) 27 - 31 pg 04-07-2020 PENDING LOC ATION [Entitic mass] 01:00-399 [facility] (35833) MCHC (RBC) 32 g/dL (NEG) 32 - 36 g/dL 04-07-2020 PENDING LOCATION [Mass/Vol] 01:00 [facility] (49478) MCV (RBC) 82 (NEG) 04-07-2020 PENDING LOCATI ON [Entitic vol] 01: [facility] () Monocytes (Bld) 0.5 10*3/uL (NEG) 0.3 - 0.9 04-07-2020 PEND ING LOCATION [#/Vol] 10*3/uL 01:00-0400 [facility] (20702) Monocytes/100 4 % (NEG) 2 - 8 % 04-07-2020 PENDING LOCATION WBC (Bld) 01:00-0400 [facility] (04480) Myoglobin 35.3 ng/mL (NEG) 04-07-2020 PENDING LOCATI ON [Mass/Vol] 01:00-0400 [facility] (77165) Natriuretic 13.0 pg/mL (no code) 0 - 100 pg/mL 04-07-2020 PENDI NG LOCATION peptide B (Bld) 01:00-0400 [facility] (15041) [Mass/Vol] Neutrophils 9.6 10*3/uL (H) 1.7 - 7 10*3/uL 04-07-2020 PE NDING LOCATION (Bld) [#/Vol] 01:000400 [facility] (24320) Neutrophils/100 87 % (H) 40 - 60 % 04-07-2020 PENDIN G LOCATION WBC (Bld) 01:000400 [facility] (87064) Platelet mean 9.6 (NEG) 04-07-2020 PENDING LOCA TION volume (Bld) 01:000400 [facility] (30796) [Entitic vol] Platelets (Bld) 216 10*3/uL (NEG) 150 - 450 04-07-2020 PEND ING LOCATION [#/Vol] 10*3/uL 01:00-0400 [facility] (53437) Potassium 3.9 mmol/L (NEG) 3.7 - 5.2 mmol/L 04-07-2020 PEND ING LOCATION [Moles/Vol] 01:00-0400 [facility] (38997) Protein 7.2 g/dL (NEG) 6.4 - 8.3 g/dL 04-07-2020 PENDING LOCATION [Mass/Vol] 01:00-0400 [facility] (49682) PT Coag (PPP) 12.4 s (NEG) 9.4 - 12.5 s 04-07-2020 PENDI NG LOCATION [Time] 01:00-0400 [facility] (41667) RBC (Bld) 5.10 10*6/uL (NEG) 4.2 - 6.1 04-07-2020 PENDING L OCATION [#/Vol] 10*6/uL 01:000400 [facility] (76542) Sodium 137 mmol/L (NEG) 135 - 145 mmol/L 04-07-2020 PEND ING LOCATION [Moles/Vol] 01:00-0400 [facility] (19912) Troponin ng/mL (NEG) 0 - 0.4 ng/mL 04-07-2020 PENDING LOCATION I.cardiac 01:00 [facility] (37482) [Mass/Vol] Urea nitrogen 12 mg/dL (NEG) 7 - 20 mg/dL 04-07-2020 PENDI NG LOCATION [Mass/Vol] 01:00 [facility] (66859) Urea 12 mg/mg (no code) 6 - 22 mg/mg 04-07-2020 PENDING L OCATION nitrogen/Creatin 01:00040 [facility] (11581) ine [Mass ratio] WBC (Bld) 11.1 10*3/uL (H) 3.5 - 10.5 04-07-2020 PENDING LOCATION [#/Vol] 10*3/uL 01:00 [facility] (42659) Vital Signs The data below is from unstructured sources Vital Reading Result Col lection Date/Time Interventions No Information Plan of Treatment Normalized Care Care Detail Care Activity Date Care Provider F acility Activity Patient Education no information no information LOCAL NO [facility] (63165) Goals Patient Goal Desired Goal no information no information Social History Normalized Code Original Code Date Value Tobacco smoking status Tobacco smoking status 08-09-2019 - Never smoked tobacco PRIS PRIS (finding) no information no information 08-09-2019 Denies [...] Admission to day no information (no phone) [facility] (no phone) 08-15-2019 04-05-2020 Patient encounter no information LEVON JUAREZ MD (no [facility] procedure phone) [facility] [address] (no phone) 03-29-2020 Patient encounter no information LEVON JUAREZ MD (no [facility] Via [place] procedure phone) [facility] [address] (no phone) 03-22-2020 Patient encounter no information LEVON JUAREZ MD (no [facility] Via [place] procedure phone) [facility] [address] (no phone) 09-26-2019 Patient encounter no information no name no or ganization name procedure 08-15-2019 Patient encounter no information no name no or ganization name - procedure 08-15-2019 08-15-2019 Patient encounter no information no name no or ganization name - procedure 08-15-2019 08-09-2019 Patient encounter no information (no phone) Prudencio tesfaye [facility] - procedure [facility] (no phone) 08-09-2019 08-08-2019 Patient encounter no [...] Equipment Information available Payers Normalized Payer Value [facility] no information ([id number]) Advance Directives Advance Directive Response Recorded Date/Time Advance Directives No Oc 2018 2:06pm Health Care Power of [employer] No August 09, 2019 2:06pm Organ Donor Yes August 09, 2019 2:06pm Resuscitation Status Full Code August 09, 2019 2:06pm Advance Directive Response Recorded Date/Time Advance Directives No Oc tober 2018 10:43am Health Care Power of [employer] No August 15, 2019 10:43am Organ Donor [...] This clinical document has been generated using [employer] software that has been certified by the Office of the National Coordinator for Health Information Technology (ONC 15.99.04.3023.Diam.[id number]) and the National Committee for Molding And Trim Installer (NCQA, as an eMeasure certified technology). FOR [...] BASED ON T HE PRIMARY CLINICAL RECORDS. [employer] provides no warranty or guara ntee of the accuracy or completeness of information in this document.The followi ng information is based on time limited clinical information
--- OUTSIDE RECORDS SUMMARY | 2020-04-07 07:32 | XMS REPORT | Continuity of Care Document ---
Author Organization Unknown Address Unknown Phone Unavailable Allergies Active Description Code Type Severity Reaction Onset Reported/Identified Relationship to Patient Clinical Status Yes erythromycin base [id number] Drug Allergy Moderate HIVES 09/24/2009 Yes latex [id number] Drug Allergy Moderate HIVES,ITCH 09/24/2009 Medications There [...] R Ot 241. 0 09/28/2015 JASPER ELISE, RADHA A Ot 599.0 10/17/2015 WINSTON ELISE, TANYA Victor Ot Z12.31 03/09/2019 JASPER ELISE, RADHA Mat[place] Ot 599.0 URIN TRACT INFECTION NOS 03/09/2019 WINSTON ELISE, TANYA Victor Ot Z12.31 ENCNTR SCREEN MAMMOGRAM FOR MALIGNANT NE 03/14/2019 KEVIN SUTHERLAND VOLUMETRIC WEIGHER Ot R10.31 RIGHT LOWER QUADRANT PAIN 03/14/2019 KEVIN SUTHERLAND Ot Z87.448 PERSONAL HISTORY OF OTHER DISEASES OF UR 03/14/2019 KEVIN SUTHERLAND VOLUMETRIC WEIGHER Ot R10.31 RIGHT LOWER QUADRANT PAIN 03/14/2019 ENA, CRYSTAL M VOLUMETRIC WEIGHER Ot Z87.448 PERSONAL HISTORY OF OTHER DISEASES OF UR 03/17/2019 KEVIN SUTHERLAND VOLUMETRIC WEIGHER Ot R10.31 RIGHT LOWER QUADRANT PAIN 03/17/2019 KEVIN SUTHERLAND VOLUMETRIC WEIGHER Ot Z87.448 PERSONAL HISTORY OF OTHER DISEASES OF UR 03/24/2019 KEVIN SUTHERLAND VOLUMETRIC WEIGHER Ot R10.31 RIGHT LOWER QUADRANT PAIN 03/24/2019 KEVIN SUTHERLAND VOLUMETRIC WEIGHER Ot Z87.448 PERSONAL HISTORY OF OTHER DISEASES OF UR 03/28/2019 KEVIN SUTHERLAND VOLUMETRIC WEIGHER Ot R10.31 RIGHT LOWER QUADRANT PAIN 03/28/2019 KEVIN SUTHERLAND VOLUMETRIC WEIGHER Ot Z87.448 PERSONAL HISTORY OF OTHER DISEASES OF UR 03/28/2019 KEVIN SUTHERLAND VOLUMETRIC WEIGHER Ot R05 COUGH 03/28/2019 KEVIN SUTHERLAND VOLUMETRIC WEIGHER Ot R13.10 DYSPHAGIA, UNSPECIFIED 03/28/2019 KEVIN SUTHERLAND VOLUMETRIC WEIGHER Ot Z12.31 ENCNTR SCREEN MAMMOGRAM FOR MALIGNANT NE 04/12/2019 KEVIN SUTHERLAND VOLUMETRIC WEIGHER Ot R92.2 INCONCLUSIVE MAMMOGRAM 04/14/2019 KEVIN SUTHERLAND VOLUMETRIC WEIGHER Ot R05 COUGH 04/14/2019 KEVIN SUTHERLAND VOLUMETRIC WEIGHER Ot R13.10 DYSPHAGIA, UNSPECIFIED 04/14/2019 KEVIN SUTHERLAND VOLUMETRIC WEIGHER Ot Z12.31 ENCNTR SCREEN MAMMOGRAM FOR MALIGNANT NE 04/26/2019 KEVIN SUTHERLAND VOLUMETRIC WEIGHER Ot R92.2 INCONCLUSIVE MAMMOGRAM 08/09/2019 FAN GRAVES [...] Ot E03.9 HYPOTHYROIDISM, UNSPECIFIED 08/29/2019 ELY CURTIS FAN B Ot E66.9 OBESITY, UNSPECIFIED 08/29/2019 ELY [...] OF BOTH CERVIX AND UTER 09/26/2019 KEVIN SUTHERLAND VOLUMETRIC WEIGHER Ot R10.31 RIGHT LOWER QUADRANT PAIN 09/26/2019 KEVIN SUTHERLAND VOLUMETRIC WEIGHER Ot Z87.448 PERSONAL HISTORY OF OTHER DISEASES OF UR 09/26/2019 KEVIN SUTHERLAND VOLUMETRIC WEIGHER Ot R05 COUGH 09/26/2019 KEVIN SUTHERLAND VOLUMETRIC WEIGHER Ot R13.10 DYSPHAGIA, UNSPECIFIED 09/26/2019 KEVIN SUTHERLAND VOLUMETRIC WEIGHER Ot Z12.31 ENCNTR SCREEN MAMMOGRAM FOR MALIGNANT NE 09/26/2019 KEVIN SUTHERLAND ZURI Ot R92.2 INCONCLUSIVE MAMMOGRAM 09/27/2019 KEVIN SUTHERLAND ZURI Ot N63.21 UNSPECIFIED LUMP IN THE LEFT BREAST, UPP 03/23/2020 LEVON JUAREZ MD, Ot L98.491 NON-PRS CHRONIC ULCER SKIN/ SITES LIMITE 03/23/2020 LEVON JUAREZ MD, Ot T23.231A BURN 2ND DEG MUL RIGHT FINGERS (NAIL), N 03/23/2020 LEVON JUAREZ MD, Ot L98.491 NON-PRS CHRONIC ULCER SKIN/ SITES LIMITE 03/23/2020 LEVON JUAREZ MD, Ot T23.231A BURN 2ND DEG MUL RIGHT FINGERS (NAIL), N 03/28/2020 LEVON JUAREZ MD, Ot L98.491 NON-PRS CHRONIC ULCER SKIN/ SITES LIMITE 03/28/2020 LEVON JUAREZ MD, Ot T23.231A BURN 2ND DEG MUL RIGHT FINGERS (NAIL), N 04/03/2020 LEVON JUAREZ MD, Ot L98.491 NON-PRS CHRONIC ULCER SKIN/ SITES LIMITE 04/03/2020 LEVON JUAREZ MD, Ot T23.231A BURN 2ND DEG MUL RIGHT FINGERS (NAIL), N Procedures There is no data. Results Test Result Range Complete blood count (CBC) with automate d white blood cell (WBC) differential - 04/07/20 05:00 Blood leukocytes automated count (number/volume) 11.1 10*3/uL 4.3-11.0 Blood erythrocytes automated count (number/volume) 5.10 10*6/uL 4.35-5.85 Venous blood hemoglobin measurement (mass/volume) 13.5 g/dL 11.5-16.0 Blood hematocrit (volume fraction) 42 % 35-52 Automated erythrocyte mean corpuscular volume 82 [ foz_us] 80-99 Automated erythrocyte mean corpuscular h emoglobin (mass per erythrocyte) 27 pg 25-34 Automated erythrocyte mean corpuscular h emoglobin concentration measurement (mass/volume) 32 g/dL 32-36 Automated erythrocyte distribution width ratio 14. 0 % 10.0- 14.5 Automated blood platelet count (count/volume) 216 10*3/uL 130-400 Automated blood platelet mean volume measurement 9.6 [foz_us] 7.4-10.4 Automated blood neutrophils/100 leukocytes 87 % 42-75 Automated blood lymphocytes/100 leukocytes 8 % 12-44 Blood monocytes/100 leukocytes 4 % 0-12 Automated blood eosinophils/100 leukocytes 1 % 0-10 Automated blood basophils/100 leukocytes 0 % 0-10 Blood neutrophils automated count (number/volume) 9.6 10*3 1.8-7.8 Blood lymphocytes automated count (number/volume) 0.9 10*3 1.0-4.0 Blood monocytes automated count (number/volume) 0. 5 10*3 0.0-1.0 Automated eosinophil count 0.1 10*3/uL 0 .0-0.3 Automated blood basophil count (count/volume) 0.0 10*3/uL 0.0-0.1 Comprehensive metabolic panel - 04/07/20 05:00 Serum or plasma sodium measurement (moles/volume) 137 mmol/L 135-145 Serum or plasma potassium measurement (moles/volume) 3.9 mmol/L 3.6-5.0 Serum or plasma chloride measurement (moles/volume) 104 mmol/L 98-107 Carbon dioxide 24 mmol/L 21-32 Serum or plasma anion gap determination (moles/volume) 9 mmol/L 5-14 Serum or plasma urea nitrogen measurement (mass/volume ) 12 mg/dL 7-18 Serum or plasma creatinine measurement (mass/volume) 0.98 mg/dL 0.60-1.30 Serum or plasma urea nitrogen/creatinine mass ratio 12 NRG Serum or plasma creatinine measurement w ith calculation of estimated glomerular filtration rate 60 NRG Serum or plasma glucose measurement (mass/volume) 120 mg/dL 70-105 Serum or plasma calcium measurement (mass/volume) 9.0 mg/dL 8.5-10.1 Serum or plasma total bilirubin measurement (mass/volu me) 0.7 mg/dL 0.1-1.0 Serum or plasma alkaline phosphatase vicky surement (enzymatic activity/volume) 76 U/L 40-136 Serum or plasma aspartate aminotransfera se measurement (enzymatic activity/volume) 17 U/L 5-34 Serum or plasma alanine aminotransferase measurement (enzymatic activity/volume) 13 U/L 0-55 Serum or plasma protein measurement (mass/volume) 7.2 g/dL 6.4-8.2 Serum or plasma albumin measurement (mass/volume) 4.2 g/dL 3.2-4.5 CALCIUM CORRECTED 8.8 mg/dL 8.5-10.1 Magnesium - 04/07/20 05:00 Magnesium 1.9 mg/dL 1.6-2.4 PT panel in platelet poor plasma by coag ulation assay - 04/07/20 05:00 Prothrombin time (PT) in platelet poor plasma by coagu lation assay 12.4 s 12.2-14.7 INR in platelet poor plasma or blood by coagulation as say 0.9 0.8-1.4 Activated partial thromboplastin time (a PTT) in platelet poor plasma bycoagulation assay - 04/07/20 05:00 Activated partial thromboplastin time (a PTT) in platelet poor plasma bycoagulation assay 31 s 24-35 Serum or plasma creatine kinase measurem ent (enzymatic activity/volume) - 04/07/20 05:00 Serum or plasma creatine kinase measurem ent (enzymatic activity/volume) 75 U/L 29-168 Serum or plasma creatine kinase MB measu rement (enzymatic activity/volume) - 04/07/20 05:00 Serum or plasma creatine kinase MB measu rement (enzymatic activity/volume) 0.9 ng/mL <6.6 Myoglobin, serum - 04/07/20 05:00 Myoglobin, serum 35.3 ng/mL 10.0-92.0 Serum or plasma amylase measurement (enz ymatic activity/volume) - 04/07/20 05:00 Serum or plasma amylase measurement (enzymatic activit y/volume) 63 U/L 25-125 Lipase - 04/07/20 05:00 Lipase 19 U/L 8-78 Serum or plasma troponin i.cardiac measu rement (mass/volume) - 04/07/20 05:00 Serum or plasma troponin i.cardiac measurement (mass/v olume) < ng/mL <0.028 Serum or plasma lithium measurement (mol es/volume) - 04/07/20 05:00 BNP PT 13.0 pg/mL <100.0 Serum ragweed IgE antibody assay - 04/07 05:00 Serum ragweed IgE antibody assay 172 U/L 125-220 PROCALCITONIN (PCT) - 04/07/20 05:00 PROCALCITONIN (PCT) 0.01 ng/mL <0.10 Fibrin D-dimer FEU measurement in [facility] et poor plasma (mass/volume) - 04/07/20 05:00 Fibrin D-dimer FEU measurement in platelet poor plasma (mass/volume) < ug/mL 0.00-0.49 Erythrocyte sedimentation rate by zack gren method - 04/07/20 05:00 Erythrocyte sedimentation rate by westergren method 1 mm 0- 30 Serum or plasma C reactive protein measu rement (mass/volume) - 04/07/20 05:00 Serum or plasma C reactive protein measurement (mass/v olume) 2.22 mg/dL 0.00-0.50 Encounters ACCT No. Visit Date/Time Discharge Status Pt. Type Provider Facility Loc./Unit Complaint [id number] 03/29/2020 09:27:00 23:59:59 CLS Outpatient LEVON JUAREZ MD [id number] 03/22/2020 13:19:00 23:59:59 CLS Outpatient LEVON JUAREZ MD [facility] [id number] 09/26/2019 13:04:00 23:59:59 CLS Outpatient KEVIN SUTHERLAND [facility] RAD ABNORMAL MAMMOG FRANCK [id number] 08/15/2019 10:11:00 13:35:00 DIS Outpatient FAN GRAVES DO [facility] ENDO SCREENING/DYSPHAGIA [id number] 08/09/2019 14:00:00 14:15:00 DIS Outpatient FAN GRAVES DO [facility] PREOP COLONOSCOPY/EGD [id number] 08/08/2019 10:00:00 23:59:59 CLS Preadmit FAN GRAVES DO, V [facility] RAD DYSPHAGIA W/SOLID FOOD [id number] 04/11/2019 13:33:00 23:59:59 CLS Outpatient KEVIN SUTHERLAND [facility] RAD ABN MAMMO OF LE FT BREAST [id number] 03/28/2019 11:20:00 23:59:59 CLS Outpatient KEVIN SUTHERLAND [facility] RAD COUGH,DYSPHAGIA [id number] 03/11/2019 12:32:00 23:59:59 CLS Outpatient KEVIN SUTHERLAND [facility] RAD RLQ ABD PAIN [id number] 03/02/2019 08:49:00 23:59:59 CLS Preadmit KEVIN SUTHERLAND [facility] RAD SCREENING [id number] 09/28/2015 10:47:00 23:59:59 CLS Outpatient TANYA MONTERO MD [facility] RAD ROUTINE SCREENI NG [id number] 03/30/2015 07:17:00 23:59:59 CLS Outpatient RADHA HUTCHINSON MD [facility] RAD RECURRENT UTI [id number] 02/18/2013 10:03:00 23:59:59 CLS Outpatient LUIS POOL MD [facility] RAD [id number] 04/07/2020 05:09:00 Document Registration [id number] 04/05/2020 08:18:[address] Outpatient LEVON JUAREZ MD [facility] WOUNDCARE [id number] 03/30/2015 07:18:00 Document Registration [id number] 03/30/2015 07:18:00 Document Registration [id number] 08/25/2012 13:07:00 Document Registration [id number] 11/21/2011 07:53:00 Document Registration [id number] 11/20/2011 07:44:00 Document Registration
--- NOTE | 2020-04-07 07:45 | Diagnostic Imaging Report ---
EXAMINATION: Chest radiograph, portable AP view. DATE: 04/07/2020 5:15 AM hours. INDICATION: 50-year-old female, chest and back pain. COMPARISON: January 14, 2010. FINDINGS: Heart size and mediastinal contours are unremarkable. There is no identified pneumothorax. There is no large pleural effusion. There is no identified focal airspace consolidation. IMPRESSION: No identified acute cardiopulmonary abnormality. Dictated by: Dictated on workstation # [id number]
--- NOTE | 2020-04-07 07:55 | NUR ---
JOSE RAULTAMELA K admitted to room CU6-1, with an admitting diagnosis of CP, LLL PNEUMONIA, COVID 19 EVAL, on 04/07/20 from ER via WC, accompanied by STAFF.TAMELA BLUNT introduced to surroundings, call light, bed controls, phone, TV, temperature control, lights, meal times, smoking policy, visitor policy, side rail policy, bathrooms and showers. Patient Rights given to patient in the handbook. TAMELA BLUNT verbalizes understanding that [facility] is not responsible for the loss or damage to any personal effects or valuables that are kept in the patients posession during their hospitalization. The following Patient Care Plans were discussed with the PT: Discharge Planning, IMPAIRED GAS EXCHANGE,INEFFECTIVE BREATHING PATTERN, and KNOWLEDGE DEFICIT. TAMELA BLUNT verbalizes understanding of Interdisciplinary Patient Education. Patient and family were informed about the Rapid Response Team and its purpose.
[2020-04-07] MEDS ORDERED: morphine INJ 10 MG/ML 1ML (SYR OR VIAL) IVP ONE (08:00)
[2020-04-07] MEDS ORDERED: ONDANSETRON 4 MG/2 ML (SDV) Z0FRAN IV PRN ×2 (08:15→11:45)
[2020-04-07] MEDS: LACTATED RINGERS 1,000 ML IV SCH ×2 (09:18→22:29)
[2020-04-07] MEDS ORDERED: RT-ALBUTEROL INHALER HFA (VENTOLIN HFA) 8 GM IH PRN (11:00)
--- NOTE | 2020-04-07 11:34 | History & Physical-Hospitalist ---
History of Present Illness HPI/Chief Complaint Adriana benites is a 50-year-old female with past medical history of hypothyroidism who presented with chest pain. She reports that the pain woke her up out of sleep this morning. She says the pain is left-sided and radiates to the lower shoulder blade in her back. She denies any radiation to her neck, jaw, or arm. She describes it as a stabbing pain. She denies any associated nausea, vomiting, diaphoresis, or shortness of breath. She has a chronic cough due to allergies. She denies any fevers or chills. She denies any abdominal pain. She denies any diarrhea. She denies any rash. 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 She reports that they did not wear masks but do remain at least 6 feet apart. Source: patient Exam Limitations: no limitations Date Seen 04/07/20 Time Seen by a Provider: 09:20 Attending Physician Carolina Govea MD PCP No,Local Physician Referring Physician Date of Admission Apr 07, 2020 at 07:12 Home Medications & Allergies Home Medications Reviewed patient Home Medication Reconciliation performed by pharmacy medication reconciliations quick service technician and/or nursing. Patients Allergies have been reviewed. Allergies Allergies Coded Allergies erythromycin base (Verified Allergy, Intermediate, HIVES, 09/24/09) latex (Unverified Allergy, Intermediate, HIVES,ITCH, 09/24/09) prednisone (Verified Adverse Reaction, Unknown, "makes me mean", 04/07/20) Past Twlsbpy-Pckexx-Wbmgkz Hx Past Med/Social Hx: Reviewed and Corrections made Patient Social History Alcohol Use: Denies Use Recreational Drug Use: No Smoking Status: Never a Smoker Recent Foreign Travel: No Contact w/other who traveled: No Recent Hopitalizations: No Recent Infectious Disease Expo: No Seasonal Allergies Seasonal Allergies: Yes Past Medical History Surgeries: Section, Hysterectomy, Oophorectomy, Orthopedic Reproductive: Yes (MENORRHAGIA) Hysterectomy Endocrine: Hyperthyroidism, Hypothyroidsim History of Blood Disorders: No Family History Cardiovascular disease 19 MOTHER Diabetes mellitus 19 FATHER Myocardial infarction 19 MOTHER Review of Systems Constitutional: no symptoms reported EENTM: no symptoms reported Respiratory: cough Cardiovascular: chest pain Gastrointestinal: no symptoms reported Genitourinary: no symptoms reported Musculoskeletal: back pain Skin: no symptoms reported Psychiatric/Neurological: No Symptoms Reported Physical Exam Physical Exam Vital Signs Vital Signs - First Documented 04/07/20 04/07/20 05:25 07:55 Pulse Ox 96 O2 Flow Rate 2.00 Capillary Refill : Less Than 3 Seconds Height, Weight, BMI Height: '" Weight: lbs. oz. kg; 39.60 BMI Method: General Appearance: No Apparent Distress, Obese HEENT: PERRL/EOMI, Pharynx Normal Neck: Normal Inspection, Supple Respiratory: Lungs Clear, Normal Breath Sounds, No Respiratory Distress Cardiovascular: Regular Rate, Rhythm, No Edema, No Murmur Gastrointestinal: Normal Bowel Sounds, Non Tender, Soft; No Distended, No Guarding; Other (Negative Schroeder sign) Extremity: Normal Inspection, Non Tender, No Pedal Edema Neurologic/Psychiatric: Alert, Oriented x3, No Motor/Sensory Deficits, Normal Mood/Affect Skin: Normal Color, Warm/Dry Results Results/Procedures Labs Laboratory Tests 04/07/20 05:00 Patient resulted labs reviewed. Imaging: Reviewed Imaging Report Assessment/Plan Admission Diagnosis Chest pain Admission Status: Inpatient Order (span 2 midnights) Reason for Inpatient Admission: Chest pain requiring further evaluation and treatment PUI for COVID Cholelithiasis needing surgical consultation Assessment and Plan Chest pain Possible pneumonia Cholelithiasis without cholecystitis Initial troponin EKG normal Continue to trend troponin D-dimer negative CT showed no pulmonary embolism, revealed left lower lobe infiltrate, cholelithiasis Started on Rocephin and azithromycin for pneumonia Procalcitonin negative, repeat tomorrow Cardiology and general surgery consulted, will await COVID results prior to seeing patient Hypothyroidism Continue Synthroid DVT prophylaxis: Lovenox Diagnosis/Problems Diagnosis/Problems (1) Chest pain Status: Acute Qualifiers: Chest pain type: unspecified Qualified Codes: R07.9 - Chest pain, unspecified (2) Cholelithiasis Status: Acute Qualifiers: Cholelithiasis location: gallbladder Cholecystitis presence: without cholecystitis Biliary obstruction: without biliary obstruction Qualified Codes: K80.20 - Calculus of gallbladder without cholecystitis without obstruction (3) Left lower lobe pneumonia Status: Acute Qualifiers: Pneumonia type: due to unspecified organism Qualified Codes: J18.1 - Lobar pneumonia, unspecified organism Clinical Quality Measures AMI/AHF: ASA po Prior to arrival: No DVT/VTE Risk/Contraindication: Risk Factor Score Per Nursin RFS Level Per Nursing on Admit: 3=High CAROLINA GOVEA MD Apr 07, 2020 11:34
[2020-04-07] MEDS ORDERED: ANTACID SUSP 30 ML UDC (MYLANTA) PO PRN (11:45)
[2020-04-07] MEDS ORDERED: ONDANSETRON 4 MG (ZOFRAN) ORAL DISSOLVE TAB PO PRN (11:45)
[2020-04-07] MEDS ORDERED: MELATONIN 3 MG TABLET PO PRN (11:45)
[2020-04-07] MEDS ORDERED: diphenhydrAMINE 25 MG TAB (BENADRYL) PO PRN (11:45)
[2020-04-07] MEDS ORDERED: polyethylene glycoL POWDER 17 GM (MIRALAX) PACK PO PRN (11:45)
[2020-04-07] MEDS ORDERED: ENOXAPARIN 40 MG/0.4 ML (LOVENOX) SYR SC SCH (12:00)
[2020-04-07] MEDS: RT-ALBUTEROL INHALER HFA (VENTOLIN HFA) 8 GM IH SCH ×2 (14:27→21:34)
--- NOTE | 2020-04-07 16:09 | NUR ---
OK TO TAKE PT OUT OF COVID ISOLATION PER DR GOVEA.
[2020-04-07] MEDS: ACETAMINOPHEN 325 MG TABLET PO PRN ×2 (20:11→20:41)
--- NOTE | 2020-04-07 21:34 | Consultation-Cardiology ---
HPI-Cardiology Cardiology Consultation: Date of Consultation 04/07/20 Date of Admission Attending Physician Deep Govea MD Admitting Physician Digna,Local Physician Consulting Physician Ariel MEDINA MD HPI: Time Seen by a Provider: 16:45 Chief Complaint: Chest pain. This is a 50-year-old lady with previous history of hypothyroidism. She presents with chest pain. She denies active smoking. No significant pertinent family history. The pain is left-sided and radiates to the left shoulder. No other radiation. Stabbing quality. No associated cardiac symptoms. She denies any other known cardiac symptoms as well. Review of Systems-Cardiology Review of Systems Constitutional: As described under HPI; No As described under HPI, No no symptoms reported, No chills, No fever, No lightheadedness Eyes: No As described under HPI, No no symptoms reported, No blindness, No blurred vision, No contact lenses, No drainage, No decreased acuity, No foreign body sensation, No pain, No vision change Ears/Nose/Throat: No As described under HPI, No no symptoms reported, No chronic hearing loss, No ear discharge, No ear pain, No nasal drainage, No ulcerations Respiratory: No no symptoms reported; As described under HPI; No As described under HPI, No cough, No orthopnea, No shortness of breath, No SOB with excertion Cardiovascular: No no symptoms reported; As described under HPI; No As described under HPI; chest pain; No edema, No irregular heart rate, No lightheadedness, No palpitations Gastrointestinal: No no symptoms reported, No As described under HPI, No abdomen distended, No abdominal pain, No blood streaked bowels, No constipation, No diarrhea, No nausea, No vomiting, No stool coloration changes Genitourinary: No As described under HPI, No burning, No dysuria, No discharge, No frequency, No flank pain, No hematuria, No urgency : Yes : No Skin: No rash, No skin related problems, No ulcerations Psychiatric/Neurological: No anxiety, No depression, No seizure, No focal weakness, No syncope Hematologic: No bleeding abnormalities ZSG-Oibuth-Lntchh Hx Patient Social History Alcohol Use: Denies Use Recreational Drug Use: No Smoking Status: Never a Smoker Recent Foreign Travel: No Recent Infectious Disease Expo: No Hospitalization with Isolation: Denies Past Medical History PMH As described under Assessment. Family Medical History Family History: Cardiovascular disease 19 MOTHER Diabetes mellitus 19 FATHER Myocardial infarction 19 MOTHER Allergies and Home Medications Allergies Coded Allergies: erythromycin base (Verified Allergy, Intermediate, HIVES, 09/24/09) latex (Unverified Allergy, Intermediate, HIVES,ITCH, 09/24/09) prednisone (Verified Adverse Reaction, Unknown, "makes me mean", 04/07/20) Home Medications Cefdinir 300 Mg Capsule, 300 MG PO BID Prescribed by: DEEP GOVEA on 04/08/20 1034 Levothyroxine Sodium 100 Mcg Tablet, 100 MCG PO DAILY, (Reported) Patient Home Medication List Home Medication List Reviewed: Yes Physical Exam-Cardiology Physical Exam Vital Signs/I&O Capillary Refill : Less Than 3 Seconds Constitutional: appears stated age, AAO x 3; No apparent distress; well- developed, well-nourished HEENT: PERRL; No discharge; hearing is well preserved, oral hygience is good; No ulceration, No xanthelasmas are seen Neck: No carotid bruit; carotid pulses are 2 + bilaterally Respiratory: chest is bilaterally symmetric, lungs clear to auscultation; No stridor, No wheezing, No pleural rub Cardiovascular: regular rate-rhythm, S1 and S2; No diastolic murmur, No systolic murmur Gastrointestinal: soft, audible bowel sounds; No spleenomegaly Rectal: deferred Extremities: normal range of motion, non-tender, normal inspection; No clubbing, No cyanosis; no lower extremity edema bilateral; No significant edema Neurologic/Psychiatric: no motor/sensory deficits, alert, normal mood/affect, oriented x 3, power is 5/5 both on sides Skin: normal color, warm/dry; No rash, No ulcerations Data Review Labs Microbiology 04/07/20 Blood Culture - Preliminary, Resulted No growth ECG Impression ECG Initial ECG Rhythm: S.Tach Initial ECG Impression: Nonspecific Changes A/P-Cardiology Assessment/Admission Diagnosis Chest pain, Hypothyroidism, Shortness of breath, Elevated CRP, PU I COVID-19, Possible pneumonia Plan Chest pain, check serial troponin. Initial EKG did not show any acute ST-T wave abnormalities. Echocardiogram. Hypothyroidism, on levothyroxine. Shortness of breath, negative BNP. The patient is not in congestive heart failure. Elevated CRP, defer to the primary team. PU I COVID-19, COVID-19 negative. Possible pneumonia, on IV antibiotics. Defer to the primary team. Thank you for your consultation. Please call me if you have any questions. Reno Medina MD, FACP, FACC, FSCAI, FHRS, CCDS Interventional Cardiology Cardiac Electrophysiology Vascular Medicine and Endovascular Interventions Clinical Quality Measures AMI/AHF: ASA po Prior to arrival: No DVT/VTE Risk/Contraindication: Risk Factor Score Per Nursin RFS Level Per Nursing on Admit: 3=High Ariel MEDINA MD Apr 07, 2020 21:34
[2020-04-07] MEDS: SENNOSIDES 8.6 MG (SENOKOT) TAB PO SCH (22:31)
[2020-04-07] MEDS: DOCUSATE SODIUM 100 MG (COLACE) CAP PO SCH (22:31)
--- NOTE | 2020-04-07 23:58 | Consultation - Surgery ---
History of Present Illness History of Present Illness Patient Consulted On(enoc/time) 04/07/20 23:51 Time Seen by Provider: 23:44 History of Present Illness Surgery asked to consult regarding Cholelithiasis. HPI per IM: Adriana benites is a 50-year-old female with past medical history of hypothyroidism who presented with chest pain. She reports that the pain woke her up out of sleep this morning. She says the pain is left-sided and radiates to the lower shoulder blade in her back. She denies any radiation to her neck, jaw, or arm. She describes it as a stabbing pain. She denies any associated nausea, vomiting, diaphoresis, or shortness of breath. She has a chronic cough due to allergies. She denies any fevers or chills. She denies any abdominal pain. She denies any diarrhea. She denies any rash. 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 She reports that they did not wear masks but do remain at least 6 feet apart. When I spoke to pt she states she has never had pain on the right (not really ever had this pain before) and never had pain with certain types of food. Allergies and Home Medications Allergies Coded Allergies: erythromycin base (Verified Allergy, Intermediate, HIVES, 09/24/09) latex (Unverified Allergy, Intermediate, HIVES,ITCH, 09/24/09) prednisone (Verified Adverse Reaction, Unknown, "makes me mean", 04/07/20) Home Medications Levothyroxine Sodium 100 Mcg Tablet, 100 MCG PO DAILY, (Reported) Patient Home Medication List Home Medication List Reviewed: Yes Past Eozagzw-Qqpjfi-Gfbwfi Hx Patient Social History Alcohol Use: Denies Use Recreational Drug Use: No Smoking Status: Never a Smoker Recent Foreign Travel: No Contact w/Someone Who Travel: No Recent Infectious Disease Expo: No Recent Hopitalizations: No Seasonal Allergies Seasonal Allergies: Yes Surgeries History of Surgeries: Yes (BUNIONECTOMY BILATERALLY X 2; X 4; HYST/USO) Surgeries: Section, Hysterectomy, Oophorectomy, Orthopedic Respiratory History of Respiratory Disorde: No Cardiovascular History of Cardiac Disorders: No Neurological History of Neurological Disord: No Reproductive System : No Hx Reproductive Disorders: Yes (MENORRHAGIA) 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 Genitourinary History of Genitourinary Disor: No Gastrointestinal History of Gastrointestinal Di: Yes (dysphagia) Musculoskeletal History of Musculoskeletal Dis: No Endocrine History of Endocrine Disorders: Yes (HYPERTHYROID-S/P [place]--NOW HYPOTHYROID) Endocrine Disorders: Hyperthyroidism, Hypothyroidsim HEENT History of HEENT Disorders: No Cancer History of Cancer: No Psychosocial History of Psychiatric Problem: No Integumentary History of Skin or Integumenta: No Blood Transfusions History of Blood Disorders: No Family Medical History Significant Family History: Heart Disease, Diabetes Family Medial History: Cardiovascular disease 19 MOTHER Diabetes mellitus 19 FATHER Myocardial infarction 19 MOTHER Review of Systems-General Constitutional: No chills, No diaphoresis EENTM: No blurred vision, No double vision, No mouth pain, No mouth swelling, No epistaxis Respiratory: No dyspnea on exertion, No hemoptysis, No short of breath Cardiovascular: chest pain; No edema, No palpitations Gastrointestinal: abdominal pain (LUQ); No hematemesis, No nausea, No vomiting Genitourinary: No dysuria, No frequency, No hematuria Musculoskeletal: No joint pain, No joint swelling, No muscle stiffness Skin: No change in color, No change in hair/nails Psychiatric/Neurological: Denies Anxiety, Denies Depressed, Denies Seizure, Denies Tremors Physical Exam-General Problems Physical Exam Vital Signs Vital Signs - First Documented 04/07/20 04/07/20 05:25 07:55 Pulse Ox 96 O2 Flow Rate 2.00 Capillary Refill : Less Than 3 Seconds General Appearance: WD/WN, no apparent distress Eyes: Bilateral Eye PERRL, Bilateral Eye EOMI HEENT: pharynx normal; No scleral icterus (R), No scleral icterus (L) Neck: non-tender, supple Respiratory: chest non-tender, lungs clear, normal breath sounds, no respiratory distress, no accessory muscle use Cardiovascular: regular rate, rhythm, no murmur Gastrointestinal: normal bowel sounds, non tender, soft, no organomegaly, no pulsatile mass Back: no CVA tenderness, no vertebral tenderness Extremities: non-tender, no pedal edema, no calf tenderness 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/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, no motor/sensory deficits, alert, normal mood/affect, oriented x 3 Skin: normal color, warm/dry Lymphatic: no adenopathy (neck, axilla or groin) Data Review Labs Laboratory Tests 04/07/20 05:00: White Blood Count 11.1H, Red Blood Count 5.10, Hemoglobin 13.5, Hematocrit 42, Mean Corpuscular Volume 82, Mean Corpuscular Hemoglobin 27, Mean Corpuscular Hemoglobin Concent 32, Red Cell Distribution Width 14.0, Platelet Count 216, Mean Platelet Volume 9.6, Neutrophils (%) (Auto) 87H, Lymphocytes (%) (Auto) 8L, Monocytes (%) (Auto) 4, Eosinophils (%) (Auto) 1, Basophils (%) (Auto) 0, Neutrophils # (Auto) 9.6H, Lymphocytes # (Auto) 0.9L, Monocytes # (Auto) 0.5, Eosinophils # (Auto) 0.1, Basophils # (Auto) 0.0, Erythrocyte Sedimentation Rate 1, Prothrombin Time 12.4, INR Comment 0.9, Activated Partial Thromboplast Time 31, D-Dimer < 0.27, Sodium Level 137, Potassium Level 3.9, Chloride Level 104, Carbon Dioxide Level 24, Anion Gap 9, Blood Urea Nitrogen 12, Creatinine 0.98, Estimat Glomerular Filtration Rate 60, BUN/Creatinine Ratio 12, Glucose Level 120H, Calcium Level 9.0, Corrected Calcium 8.8, Magnesium Level 1.9, Total Bilirubin 0.7, Aspartate Amino Transf (AST/SGOT) 17, Alanine Aminotransferase (ALT/SGPT) 13, Alkaline Phosphatase 76, Lactate Dehydrogenase 172, Total Creatine Kinase 75, Creatine Kinase MB 0.9, Myoglobin 35.3, Troponin I < 0.028, C-Reactive Protein High Sensitivity 2.22H, B-Type Natriuretic Peptide 13.0, Total Protein 7.2, Albumin 4.2, Amylase Level 63, Lipase 19, Procalcitonin 0.01 04/07/20 06:00: Coronavirus (COVID-19)(PCR) Negative 04/07/20 07:09: Lactic Acid Level 0.93 04/07/20 13:30: Troponin I < 0.[address] ANGIO CHEST W PROCEDURE: CT angiography of the chest with contrast. TECHNIQUE: Multiple contiguous axial images were obtained through the chest after uneventful bolus administration of intravenous contrast. 3D reconstructed CTA MIP acquisitions were also performed. Auto Exposure Controls were utilized during the CT exam to meet ALARA standards for radiation dose reduction. INDICATION: Chest pain and shortness of air. No prior studies are available for comparison. Evaluation of the pulmonary arterial system is without evidence of thromboembolism. No filling defects are seen within central, lobar or segmental branches. Thoracic aorta is normal caliber. No dissection is identified. No pericardial or pleural fluid is identified. There is some mild infiltrate in the left lower lobe adjacent to the heart. Right lung is clear. Upper abdomen demonstrates a stone within the gallbladder. IMPRESSION: 1. No evidence of pulmonary embolism or thoracic aortic dissection. 2. Left basilar infiltrate. 3. Cholelithiasis. Dictated by: Dictated on workstation # [id number] Dict: 04/07/20 0638 Trans: 04/07/20 1530 HUBERT [id number] Interpreted by: SURI DECKER MD Electronically signed by: SURI DECKER MD 04/07/20 1530 Assessment/Plan Assessment/Plan Assessment/Plan Cholelithiasis Left Lung Infiltrate Left Chest pain radiating to her shoulder blade Pt has a stone in her gallbladder, but I think this is an incidental finding and not the cause of her pain. I think her pain is due to the infiltrate in her lung. If she experiences this again or it starts happening with certain foods, she can come see me in the clinic. I explained all this to her and all questions answered to her satisfaction. Clinical Quality Measures AMI/AHF: ASA po Prior to arrival: No DVT/VTE Risk/Contraindication: Risk Factor Score Per Nursin RFS Level Per Nursing on Admit: 3=High FAN GRAVES DO Apr 07, 2020 23:58
[2020-04-08 01:00] VITALS: BP 104/62
[2020-04-08 02:00] VITALS: BP 102/57
[2020-04-08 03:00] VITALS: BP 115/70
[2020-04-08 03:31] LABS: BASOPHILS % (AUTO) 0 % (0-10); EOSINOPHILS # (AUTO) 0.1 10^3/uL (0.0-0.3); EOSINOPHILS % (AUTO) 2 % (0-10); HEMATOCRIT 36 % (35-52); LYMPHOCYTES % (AUTO) 30 % (12-44); MEAN CORPUSCULAR HEMOGLOBIN 26 PG (25-34); MEAN CORPUSCULAR HGB CONC 30 G/DL (32-36); MEAN CORPUSCULAR VOLUME 85 FL (80-99); MEAN PLATELET VOLUME 9.7 FL (7.4-10.4); MONOCYTES # (AUTO) 0.6 X 10^3 (0.0-1.0); MONOCYTES % (AUTO) 10 % (0-12); NEUTROPHILS # (AUTO) 3.8 X 10^3 (1.8-7.8); NEUTROPHILS % (AUTO) 58 % (42-75); PLATELET COUNT 191 10^3/uL (130-400); RED CELL DISTRIBUTION WIDTH 14.5 % (10.0-14.5); WHITE BLOOD COUNT 6.6 10^3/uL (4.3-11.0)
[2020-04-08] MEDS: RT-ALBUTEROL INHALER HFA (VENTOLIN HFA) 8 GM IH SCH ×2 (03:41→07:52)
[2020-04-08 03:53] LABS: CALCIUM 8.1 MG/DL (8.5-10.1); CREATININE SERUM 1.01 MG/DL (0.60-1.30); MAGNESIUM 2.1 MG/DL (1.6-2.4); PHOSPHORUS 3.9 MG/DL (2.3-4.7); POTASSIUM 3.9 MMOL/L (3.6-5.0)
[2020-04-08] MEDS: ACETAMINOPHEN 325 MG TABLET PO PRN (03:54)
--- NOTE | 2020-04-08 06:28 | Pulmonary Consultation ---
History of Present Illness History of Present Illness Date Seen by Provider: Apr 08, 2020 Time Seen by Provider: 06:24 Date of Admission Allergies and Home Medications Allergies Coded Allergies: erythromycin base (Verified Allergy, Intermediate, HIVES, 09/24/09) latex (Unverified Allergy, Intermediate, HIVES,ITCH, 09/24/09) prednisone (Verified Adverse Reaction, Unknown, "makes me mean", 04/07/20) Home Medications Levothyroxine Sodium 100 Mcg Tablet, 100 MCG PO DAILY, (Reported) Past Enshllp-Ryiaju-Leuifn Hx Past Med/Social Hx: Reviewed and Corrections made Patient Social History Alcohol Use: Denies Use Recreational Drug Use: No Smoking Status: Never a Smoker Recent Foreign Travel: No Contact w/Someone Who Travel: No Recent Infectious Disease Expo: No Recent Hopitalizations: No Physical Abuse: No Sexual Abuse: No Mistreated: No Fear: No Seasonal Allergies Seasonal Allergies: Yes Past Medical History Surgeries: Yes (BUNIONECTOMY BILATERALLY X 2; X 4; HYST/USO) Section, Hysterectomy, Oophorectomy, Orthopedic Respiratory: No Cardiac: No Neurological: No : No Reproductive Disorders: Yes (MENORRHAGIA) 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 oz. kg; 39.60 BMI Method: Exam Exam Vital Signs Date Time Temp Pulse Resp B/P (MAP) Pulse Ox O2 Delivery O2 Flow Rate FiO2 04/08/20 04:00 70 16 94 Room Air 04/08/20 04:00 Room Air 04/08/20 03:52 36.8 04/08/20 03:42 95 Nasal Cannula 1.50 04/08/20 03:00 73 13 115/70 (85) 94 Room Air 04/08/20 02:00 71 17 102/57 (72) 92 Room Air 04/08/20 01:00 73 6/14/20 01:00 73 17 104/62 (76) 92 Room Air 04/08/20 00:00 80 17 94 Room Air 04/07/20 23:45 Room Air 04/07/20 23:44 96 Nasal Cannula 1.50 04/07/20 23:41 36.7 04/07/20 23:00 81 19 105/61 (76) 95 Nasal Cannula 1.50 04/07/20 22:00 85 20 102/57 (72) 95 Nasal Cannula 1.50 04/07/20 21:34 96 Nasal Cannula 1.50 04/07/20 21:00 84 18 97/56 (70) 96 Nasal Cannula 1.50 04/07/20 21:00 Nasal Cannula 1.50 04/07/20 20:41 36.7 04/07/20 20:41 36.7 04/07/20 20:11 38.1 04/07/20 20:00 81 20 103/57 (72) 96 Nasal Cannula 1.50 04/07/20 20:00 38.1 04/07/20 19:19 96 Nasal Cannula 1.50 04/07/20 19:00 86 21 100/62 (75) 95 Nasal Cannula 1.50 04/07/20 19:00 89 04/07/20 16:12 37.9 04/07/20 16:00 86 20 108/62 (77) 95 Nasal Cannula 1.50 04/07/20 15:05 Nasal Cannula 1.50 04/07/20 15:00 86 18 112/53 (72) 96 Nasal Cannula 1.50 04/07/20 14:31 Nasal Cannula 1.50 04/07/20 14:27 97 Nasal Cannula 1.50 04/07/20 14:00 76 18 99/62 (74) 99 Nasal Cannula 3.00 04/07/20 13:00 80 20 99 Nasal Cannula 3.00 04/07/20 12:42 Nasal Cannula 3.00 04/07/20 12:26 76 04/07/20 12:18 36.4 04/07/20 12:00 74 18 101/50 (67) 97 Nasal Cannula 3.00 04/07/20 11:00 73 17 86/46 (59) 98 Nasal Cannula 3.00 04/07/20 10:42 36.4 78 96 04/07/20 10:00 84 30 91/55 (67) 97 Nasal Cannula 3.00 04/07/20 09:39 36.4 3.00 04/07/20 09:00 78 19 97/59 (72) 98 Nasal Cannula 3.00 04/07/20 08:30 80 04/07/20 08:15 81 16 101/57 (72) 95 Nasal Cannula 3.00 04/07/20 07:55 78 18 106/56 96 Room Air 04/07/20 07:55 Nasal Cannula 3.00 I & O 04/08/20 07:00 Intake Total 2950 ml Output Total 1200 ml Balance 1750 ml Height & Weight Height: '" Weight: lbs. oz. kg; 39.60 BMI Method: General Appearance: No Apparent Distress, Obese HEENT: PERRL/EOMI, Pharynx Normal Neck: Normal Inspection, Supple Respiratory: Lungs Clear, Normal Breath Sounds, No Respiratory Distress Cardiovascular: Regular Rate, Rhythm, No Edema, No Murmur Capillary Refill: Less Than 3 Seconds Gastrointestinal: normal bowel sounds, non tender, soft, no organomegaly, no pulsatile mass Extremity: Normal Inspection, Non Tender, No Pedal Edema Neurologic/Psychiatric: Alert, Oriented x3, No Motor/Sensory Deficits, Normal Mood/Affect Skin: Normal Color, Warm/Dry Results Lab Laboratory Tests 04/07/20 05:00 04/08/20 03:01 Assessment/Plan Assessment/Plan Pneumonia -Rocephin and azithromycin currently -Ok from my standpoint to change to PO Abx (Omnicef and Azithromycin x total 5 days) and discharge -COVID is negative -Pt is on RA CP -Cardiology is following -Neg troponin x 2 [address] [place] [address]. NELIA QUEEN DO Apr 08, 2020 06:27
[2020-04-08] MEDS ORDERED: LEVOTHYROXINE 100 MCG (LEVOTHROID) TAB PO SCH (06:30)
[2020-04-08] MEDS ORDERED: cefTRIAXone FOR IV USE 1,000 MG in WATER (STERILE) FOR INJECTION 10 ML IV SCH (07:00)
[2020-04-08] MEDS ORDERED: AZITHROMYCIN INJECTION 500 MG in NS (IVPB) 250 ML IV SCH (07:00)
[2020-04-08 08:00] VITALS: BP 107/57
--- NOTE | 2020-04-08 08:04 | Diagnostic Imaging Report ---
INDICATION: Left sided chest pain. Time of exam: 3:46 AM Correlation is made with prior chest from one day earlier. The heart size is normal. The pulmonary vascularity is unremarkable. The lungs are clear. No infiltrate, effusion or pneumothorax is detected. IMPRESSION: No acute cardiopulmonary process is detected. Dictated by: Dictated on workstation # [id number]
[2020-04-08] MEDS: DOCUSATE SODIUM 100 MG (COLACE) CAP PO SCH (08:09)
[2020-04-08] MEDS: SENNOSIDES 8.6 MG (SENOKOT) TAB PO SCH (08:09)
[2020-04-08] MEDS ORDERED: ASPIRIN 81 MG CHEW (CHILDREN'S ASA) PO SCH (09:00)
--- NOTE | 2020-04-08 09:00 | NUR ---
TRANSFERRED TO ROOM 509. MEDICATED WITH OXYCODONE REQUESTED FOR CHEST HEAVINESS AND HEADACHE. IV INTACT IN LEFT AC. IS TEARFUL AND ANXIOUS. STATES READY TO GO HOME.
--- NOTE | 2020-04-08 09:10 | NUR ---
REPORT GIVEN TO ABILIO CUNNINGHAM WHO ASSUMES CARE OF PT. NO QUESTIONS/CONCERNS VOICED.
[2020-04-08] MEDS ORDERED: CEFD300C3 PO ×2 (10:34)
--- NOTE | 2020-04-08 10:39 | Discharge Summary ---
Discharge Summary Hospital Course Was the Problem List Reviewed?: Yes Problems/Dx: (1) Left lower lobe pneumonia Status: Acute Qualifiers: Qualified Codes: J18.1 - Lobar pneumonia, unspecified organism (2) Chest pain Status: Acute Qualifiers: Qualified Codes: R07.9 - Chest pain, unspecified (3) Cholelithiasis Status: Acute Qualifiers: Qualified Codes: K80.20 - Calculus of gallbladder without cholecystitis without obstruction Hospital Course Date of Admission: Apr 07, 2020 at 07:12 Admission Diagnosis : Chest pain Family Physician/Provider: Katerina Lundberg Date of Discharge: 04/08/20 Discharge Diagnosis: Pneumonia Hospital Course: Adriana Cadena is a 50-year-old female who presented with chest pain and was admitted with pneumonia. Cardiology was consulted due to her chest pain. Her troponins and EKG remained normal. She underwent a CT scan which revealed a left lower lobe pneumonia. She was started on Rocephin and azithromycin while inpatient. She improved and was transitioned to oral Omnicef. Her CT scan also showed an incidental finding of gallstones. Gen. surgery was consulted and believed this to be incidental and not related to her chest pain. She was discharged in stable condition. She should follow-up with her primary care provider in about a week. Labs and Pending Lab Test: Laboratory Tests 04/07/20 13:30: Troponin I < 0.028 04/08/20 03:01: White Blood Count 6.6, Red Blood Count 4.28L, Hemoglobin 11.0L, Hematocrit 36, Mean Corpuscular Volume 85, Mean Corpuscular Hemoglobin 26, Mean Corpuscular Hemoglobin Concent 30L, Red Cell Distribution Width 14.5, Platelet Count 191, Mean Platelet Volume 9.7, Neutrophils (%) (Auto) 58, Lymphocytes (%) (Auto) 30, Monocytes (%) (Auto) 10, Eosinophils (%) (Auto) 2, Basophils (%) (Auto) 0, Neutrophils # (Auto) 3.8, Lymphocytes # (Auto) 2.0, Monocytes # (Auto) 0.6, Eosinophils # (Auto) 0.1, Basophils # (Auto) 0.0, Sodium Level 139, Potassium Level 3.9, Chloride Level 106, Carbon Dioxide Level 25, Anion Gap 8, Blood Urea Nitrogen 11, Creatinine 1.01, Estimat Glomerular Filtration Rate 58, BUN/Creatinine Ratio 11, Glucose Level 93, Calcium Level 8.1L, Phosphorus Level 3.9, Magnesium Level 2.1, Procalcitonin 0.15H Home Meds Active Cefdinir 300 Mg Capsule 300 Mg PO BID 5 Days Reported Levothyroxine Sodium 100 Mcg Tablet 100 Mcg PO DAILY Assessment/Pt Instructions Medications as prescribed. Complete her course of antibiotics even if you're feeling better. Follow-up with your primary care physician. Discharge Planning: <30 minutes discharge planning Discharge Instructions Discharge Diet: No Restrictions Activity as Tolerated: Yes Consultations Cardiology, general surgery Discharge Physical Examination Vital Signs Vital Signs Date Time Temp Pulse Resp B/P (MAP) Pulse Ox O2 Delivery O2 Flow Rate FiO2 04/08/20 08:58 Room Air 04/08/20 08:00 80 15 107/57 (74) 94 04/08/20 08:00 36.4 04/08/20 03:42 1.50 General Appearance: No Apparent Distress, Obese HEENT: PERRL/EOMI, Pharynx Normal Respiratory: Lungs Clear, Normal Breath Sounds, No Respiratory Distress Cardiovascular: Regular Rate, Rhythm, No Edema, No Murmur Gastrointestinal: Normal Bowel Sounds, Non Tender, Soft Extremity: Normal Inspection, Non Tender, No Pedal Edema Skin: Normal Color, Warm/Dry Neurologic/Psychiatric: Alert, Oriented x3, No Motor/Sensory Deficits, Normal Mood/Affect Allergies: Coded Allergies: erythromycin base (Verified Allergy, Intermediate, HIVES, 09/24/09) latex (Unverified Allergy, Intermediate, HIVES,ITCH, 09/24/09) prednisone (Verified Adverse Reaction, Unknown, "makes me mean", 04/07/20) Discharge Summary Date of Admission Apr 07, 2020 at 07:12 Date of Discharge Discharge Date: Apr 08, 2020 Discharge Time: 10:39 Admission Diagnosis Chest pain Consults/Procedures Consulations Cardiology, general surgery Discharge Diagnosis Community-acquired pneumonia (1) Left lower lobe pneumonia Status: Acute Qualifiers: Qualified Codes: J18.1 - Lobar pneumonia, unspecified organism (2) Chest pain Status: Acute Qualifiers: Qualified Codes: R07.9 - Chest pain, unspecified (3) Cholelithiasis Status: Acute Qualifiers: Qualified Codes: K80.20 - Calculus of gallbladder without cholecystitis without obstruction Clinical Quality Measures AMI/AHF: ASA po Prior to arrival: No DVT/VTE Risk/Contraindication: Risk Factor Score Per Nursin RFS Level Per Nursing on Admit: 3=High DEEP GOVEA MD Apr 08, 2020 10:39
[2020-04-08 12:00] VITALS: BP 102/64
--- NOTE | 2020-04-08 12:00 | NUR ---
VERY ANXIOUS TO GO HOME. DR. GUNDERSON SAW PATIENT AND IV DC'D.
--- NOTE | 2020-04-08 13:03 | Cardiology Progress Note ---
Cardiology SOAP Progress Note Subjective: No cardiac complaints. Objective: I&O/Vital Signs Constitutional: AAO x 3 Respiratory: chest is bilaterally symmetric, lungs clear to auscultation Cardiovascular: regular rate-rhythm, S1 and S2; No diastolic murmur, No systolic murmur Gastrointestional: soft, audible bowel sounds Extremities: normal range of motion, non-tender, normal inspection, no lower extremity edema bilateral Neurologic/Psychiatric: no motor/sensory deficits, alert, normal mood/affect, oriented x 3 Skin: normal color, warm/dry Results/Procedures: Labs Microbiology 04/07/20 Blood Culture - Preliminary, Resulted No growth A/P: Assessment/Dx: Chest pain, Hypothyroidism, Shortness of breath, Elevated CRP, PU I COVID-19, Possible pneumonia Plan: Chest pain, serial troponin negative. Acute coronary syndrome has been ruled out. Initial EKG did not show any acute ST-T wave abnormalities. Echocardiogram showed normal LV function with normal diastolic function. No valvular heart disease. Hypothyroidism, on levothyroxine. Shortness of breath, negative BNP. The patient is not in congestive heart failure. Elevated CRP, defer to the primary team. PU I COVID-19, COVID-19 negative. Possible pneumonia, on IV antibiotics. Defer to the primary team. Thank you for your consultation. Please call me if you have any questions. Reno Medina MD, FACP, FACC, FSCAI, FHRS, CCDS Interventional Cardiology Cardiac Electrophysiology Vascular Medicine and Endovascular Interventions Focused Exam Lactate Level Clinical Quality Measures AMI/AHF: ASA po Prior to arrival: Ariel Roy MD Apr 08, 2020 13:03
--- NOTE | 2020-04-08 13:05 | Progress Note - Surgery ---
Subjective Time Seen by a Provider: 11:26 Subjective/Events-last exam Pt seen and examine, states she is going home. Denies any abdominal pain. Review of Systems Pulmonary: No Dyspnea, No Cough Cardiovascular: No: Chest Pain, Palpitations Gastrointestinal: No: Nausea, Vomiting, Abdominal Pain Focused Exam Lactate Level 04/07/20 07:09: Lactic Acid Level 0.93 Objective Exam Vital Signs Date Time Temp Pulse Resp B/P (MAP) Pulse Ox O2 Delivery O2 Flow Rate FiO2 04/08/20 12:00 37.4 78 20 102/64 (77) 91 Room Air 04/08/20 08:58 Room Air 04/08/20 08:25 Room Air 04/08/20 08:00 80 15 107/57 (74) 94 Room Air 04/08/20 08:00 36.4 Room Air 04/08/20 07:52 95 Room Air 04/08/20 07:00 94 04/08/20 04:00 70 16 94 Room Air 04/08/20 04:00 Room Air 04/08/20 03:52 36.8 04/08/20 03:42 95 Nasal Cannula 1.50 04/08/20 03:00 73 13 115/70 (85) 94 Room Air 04/08/20 02:00 71 17 102/57 (72) 92 Room Air 04/08/20 01:00 73 04/08/20 01:00 73 17 104/62 (76) 92 Room Air 04/08/20 00:00 80 17 94 Room Air 04/07/20 23:45 Room Air 04/07/20 23:44 96 Nasal Cannula 1.50 04/07/20 23:41 36.7 04/07/20 23:00 81 19 105/61 (76) 95 Nasal Cannula 1.50 04/07/20 22:00 85 20 102/57 (72) 95 Nasal Cannula 1.50 04/07/20 21:34 96 Nasal Cannula 1.50 04/07/20 21:00 84 18 97/56 (70) 96 Nasal Cannula 1.50 04/07/20 21:00 Nasal Cannula 1.50 04/07/20 20:41 36.7 04/07/20 20:41 36.7 04/07/20 20:11 38.1 04/07/20 20:00 81 20 103/57 (72) 96 Nasal Cannula 1.50 04/07/20 20:00 38.1 04/07/20 19:19 96 Nasal Cannula 1.50 04/07/20 19:00 86 21 100/62 (75) 95 Nasal Cannula 1.50 04/07/20 19:00 89 04/07/20 16:12 37.9 04/07/20 16:00 86 20 108/62 (77) 95 Nasal Cannula 1.50 04/07/20 15:05 Nasal Cannula 1.50 04/07/20 15:00 86 18 112/53 (72) 96 Nasal Cannula 1.50 04/07/20 14:31 Nasal Cannula 1.50 04/07/20 14:27 97 Nasal Cannula 1.50 04/07/20 14:00 76 18 99/62 (74) 99 Nasal Cannula 3.00 I & O 04/08/20 07:00 Intake Total 2950 ml Output Total 1200 ml Balance 1750 ml Capillary Refill : Less Than 3 Seconds General Appearance: No Apparent Distress, Obese HEENT: PERRL/EOMI Respiratory: Lungs Clear, Normal Breath Sounds, No Respiratory Distress Cardiovascular: Regular Rate, Rhythm, No Murmur Gastrointestinal: normal bowel sounds, non tender, soft, no organomegaly, no pulsatile mass Extremity: No Pedal Edema Results Lab Laboratory Tests 04/07/20 13:30: Troponin I < 0.028 04/08/20 03:01: White Blood Count 6.6, Red Blood Count 4.28L, Hemoglobin 11.0L, Hematocrit 36, Mean Corpuscular Volume 85, Mean Corpuscular Hemoglobin 26, Mean Corpuscular Hemoglobin Concent 30L, Red Cell Distribution Width 14.5, Platelet Count 191, Mean Platelet Volume 9.7, Neutrophils (%) (Auto) 58, Lymphocytes (%) (Auto) 30, Monocytes (%) (Auto) 10, Eosinophils (%) (Auto) 2, Basophils (%) (Auto) 0, Neutrophils # (Auto) 3.8, Lymphocytes # (Auto) 2.0, Monocytes # (Auto) 0.6, Eosinophils # (Auto) 0.1, Basophils # (Auto) 0.0, Sodium Level 139, Potassium Level 3.9, Chloride Level 106, Carbon Dioxide Level 25, Anion Gap 8, Blood Urea Nitrogen 11, Creatinine 1.01, Estimat Glomerular Filtration Rate 58, BUN/Creatinine Ratio 11, Glucose Level 93, Calcium Level 8.1L, Phosphorus Level 3.9, Magnesium Level 2.1, Procalcitonin 0.15H Assessment/Plan Assessment/Plan Assessment/Plan Cholelithiasis - most likely just incidental. Pt to follow up as outpt if anything changes, she had no questions. Left Lung Infiltrate - pt will follow with primary care. Left Chest pain radiating to her shoulder blade Clinical Quality Measures AMI/AHF: ASA po Prior to arrival: No DVT/VTE Risk/Contraindication: Risk Factor Score Per Nursin RFS Level Per Nursing on Admit: 3=High FAN GRAVES DO Apr 08, 2020 13:05
[2020-04-08 13:06] VITALS: BP 102/64
== END 2020-04-08 12:00 | disposition home or self-care (01) | DRG 195 ==
LOC: EDUNIT# 04:47 → ER 04:50 → ICU 07:12 → CSD 04-08 08:19
PROVIDERS: ADMIT Internal Medicine; ATTEND Internal Medicine
DX: J18.9 Pneumonia, unspecified organism (principal); R07.9 Chest pain, unspecified; K80.20 Calculus of gallbladder without cholecystitis without obstruction; Z91.040 Latex allergy status; E03.9 Hypothyroidism, unspecified; Z20.828 Contact with and (suspected) exposure to other viral communicable diseases
CPT/HCPCS: 36415; 71045; 71275; 80048; 80053; 82150; 82550; 82553; 83605; 83615; 83690; 83735; 83874; 83880; 84100; 84145; 84484; 85025; 85379; 85610; 85652; 85730; 86141; 87040; 87635; 93005; 93041; 93306; 94640

== ENCOUNTER → 2020-04-18 | Outpatient (CLI) | payer BC ==
[~2020-04-18] MED LIST changes: +CEFD300C3 PO
--- NOTE | 2020-04-18 16:59 | Diagnostic Imaging Report ---
INDICATION: Left breast nodule. Patient presents for six month follow-up. COMPARISON: Correlation is made with diagnostic mammogram of earlier the same day as well as left breast ultrasound from 09/26/2019. EXAMINATION: Left breast ultrasound. FINDINGS: Previously noted hypoechoic nodule at the 12:30 location of the left breast appears to be stable at 5 mm x 5 mm x 6 mm. No internal blood flow is seen. No other masses are detected. In addition, 9:00 location of the left breast was evaluated where patient states she has a dimple. No underlying abnormality is seen. IMPRESSION: Stable hypoechoic nodule at the 12:30 location of the left breast when compared with exam from September 2019. This now shows one year of stability. Additional six-month follow-up with left breast ultrasound is recommended to confirm stability. ACR BI-RADS Category 3: Probably benign findings. Result letter will be mailed to the patient. Note: At least 10% of breast cancer is not imaged by mammography. Dictated on workstation # [id number]
--- NOTE | 2020-04-18 17:01 | Diagnostic Imaging Report ---
INDICATION: Left breast nodule, six-month follow-up. COMPARISON: Correlation is made with prior left mammogram from 09/26/2019 and bilateral mammograms from 03/28/2019 and 09/28/2015. EXAMINATION: 2D and 3D bilateral diagnostic mammography was performed with CAD. The current study was also evaluated with a Computer Aided Detection (CAD) system. Scattered fibroglandular densities are identified, bilaterally. Circumscribed nodular density in the upper central left breast appears stable. No new mass is detected. No malignant appearing microcalcification is seen. Axillae are unremarkable. IMPRESSION: Stable left breast nodule. Follow-up with ultrasound is recommended and will be performed today. ACR BI-RADS Category 0: Incomplete. (Needs additional imaging evaluation). Result letter will be mailed to the patient. Note: At least 10% of breast cancer is not imaged by mammography. Dictated on workstation # [id number]
== END ==
LOC: RAD 14:08
PROVIDERS: ATTEND Nurse Practitioner Family
DX: N63.21 Unspecified lump in the left breast, upper outer quadrant (principal)
CPT/HCPCS: 76642; 77066; G0279; 77062

== ENCOUNTER → 2020-10-11 | Outpatient (CLI) | payer BC ==
--- NOTE | 2020-10-11 13:32 | Diagnostic Imaging Report ---
INDICATION: Follow-up left breast nodule. CORRELATION is made with diagnostic mammogram earlier the same day and a left breast ultrasound from 04/18/2020. Sonographic interrogation of the upper left breast again demonstrates a circumscribed hypoechoic nodule at the 12:30 location, 3 cm from the nipple. This has decreased in size since the prior exam, now measuring 4 mm x 4 mm x 2 mm. This compares with 6 mm x 5 mm x 5 mm on prior. No new mass is detected. IMPRESSION: BI-RADS Category 3 Slight decrease in size of hypoechoic nodule at the12:30 location of the left breast when compared with prior exam from 04/18/2020. This now shows 18 months of stability. An additional six-month follow-up is recommended to show 2 years of stability. ACR BI-RADS Category 3: Probably benign findings. Result letter will be mailed to the patient. Note: At least 10% of breast cancer is not imaged by mammography. Dictated by: Dictated on workstation # [id number]
--- NOTE | 2020-10-11 13:49 | Diagnostic Imaging Report ---
Indication: Six-month follow-up left breast nodule. Correlation is made with prior mammogram from 04/18/2020 and 09/26/2019. Unilateral left 2-D and 3-D diagnostic mammography was performed with CAD. Scattered fibroglandular densities left breast are noted. Nodular density in the upper central left breast does appear to be smaller on today's study. No new mass is detected. No malignant appearing microcalcifications are seen. Left axilla is unremarkable. IMPRESSION: BI-RADS 0 Slight decrease in size of nodular density in the upper central left breast when compared to prior exam. Even so, follow-up left breast ultrasound is recommended and will be performed today. ACR BI-RADS Category 0: Incomplete. (Needs additional imaging evaluation). Result letter will be mailed to the patient. Note: At least 10% of breast cancer is not imaged by mammography. Dictated by: Dictated on workstation # [id number]
== END ==
LOC: RAD 09:00
PROVIDERS: ATTEND Nurse Practitioner Family
DX: N63.21 Unspecified lump in the left breast, upper outer quadrant (principal)
CPT/HCPCS: 76642; 77065; G0279

== ENCOUNTER → 2020-10-17 | Outpatient (CLI) | payer BC | LOC: LAB 08:34 | PROVIDERS: ATTEND Nurse Practitioner Family | DX: E03.8 Other specified hypothyroidism (principal) | CPT/HCPCS: 36415; 84443 ==

== ENCOUNTER → 2023-09-09 | Outpatient (CLI) | payer OTHER ==
--- NOTE | 2023-09-09 14:23 | Diagnostic Imaging Report ---
EXAMINATION: 3D bilateral screening mammogram with CAD. INDICATION: Screening. COMPARISON: This study was compared to the prior exams of 10/11/2020, 04/18/2020, 09/26/2019, and 03/28/2019. PERSONAL HISTORY: At this time, there are no current complaints. FINDINGS: There are scattered fibroglandular densities in both breasts which could obscure a lesion. No primary or secondary sign of malignancy is noted. IMPRESSION: 1. There is no evidence for malignancy. 2. The patient should have her annual bilateral screening mammogram on schedule in August 2024. ACR BI-RADS Category 1: Negative. Result letter will be mailed to the patient. Note: At least 10% of breast cancer is not imaged by mammography. Dictated by: Dictated on workstation # [id number]
== END ==
LOC: RAD 10:16
PROVIDERS: ATTEND Family Medicine
DX: Z12.31 Encounter for screening mammogram for malignant neoplasm of breast (principal)
CPT/HCPCS: 77063; 77067